=== PATIENT | female | born 1935 | race Caucasian/White ===

== ENCOUNTER 2019-04-05 15:57 | Inpatient (IN) | payer MEDICAID, MEDICARE ==
[~2019-04-05] VITALS: Ht 152.4 cm; Wt 39.0 kg
[2019-04-05 16:05] VITALS: BP_SYST 104
--- NOTE | 2019-04-05 16:05 | NUR ---
Placed in room 7. Placed on registered nurse cardiac telemetry, blood pressure machine and pulse oximeter. To gown for exam. Side rails up. Report given to Estefania RUSH.
--- NOTE | 2019-04-05 16:06 | NUR ---
Pt AAOx1 BIB BLS from [facility] c/o increased altered mental status. Dr. Rodarte, PMD, requests for evaluation and admitting. Pt uncooperative and agressive when staff attempting to care for pt. Addendum: 04/05/19 at 1828 by [email or web address] *Dr. Varela PMD requests evaluation and admittance.
--- NOTE | 2019-04-05 16:07 | NUR ---
ER Dr. Montelongo at bedside examining patient.
--- NOTE | 2019-04-05 16:09 | NUR ---
Pt refusing EKG at this time.
--- NOTE | 2019-04-05 16:25 | NUR ---
Pt grabbing staff and moving arms. Unable to initiate IV status. Dr. Montelongo notified. 1mg Ativan to be ordered.
[2019-04-05] MEDS ORDERED: LORazepam 2 MG/ML VIAL IVP ONE (16:30)
[2019-04-05 16:43] LABS: BASOPHILS % (AUTO) 0.8 % (0.0-2.0); EOSINOPHILS % (AUTO) 1.1 % (0.0-4.0); HEMATOCRIT 39.9 % (36-48); HEMOGLOBIN 13.3 g/dL (12.0-16.0); LYMPHOCYTES # (AUTO) 1.5 K/uL (1.0-5.5); LYMPHOCYTES % (AUTO) 35.9 % (20.5-51.5); MEAN CORPUSCULAR HEMOGLOBIN 30 pg (27-31); MEAN CORPUSCULAR HGB CONC 33 % (32-36); MEAN CORPUSCULAR VOLUME 90 fL (79.0-98.0); MONOCYTES # (AUTO) 0.4 K/uL (0.0-1.0); MONOCYTES % (AUTO) 10.3 % (1.7-9.3); NEUTROPHILS # (AUTO) 2.1 K/uL (1.8-7.7); NEUTROPHILS % (AUTO) 51.9 % (40.0-70.0); PLATELET COUNT (AUTO) 190 K/uL (130-430); RED BLOOD CELL COUNT(AUTO) 4.45 MIL/uL (4.2-6.2); WHITE BLOOD COUNT (AUTO) 4.1 K/uL (4.8-10.8)
[2019-04-05] MEDS ORDERED: NACL 0.9% 1,000 ML IV ONE (16:45)
[2019-04-05 16:56] LABS: ANION GAP 4 (5-15); CALCIUM 9.1 mg/dL (8.4-11.0); CHLORIDE 105 mmol/L (98-107); CREATININE 0.52 mg/dL (0.55-1.30); GLUCOSE 103 mg/dL (70-99); POTASSIUM 3.9 mmol/L (3.5-5.1); SODIUM SERUM 142 mmol/L (136-145); UREA NITROGEN, BLOOD 28 mg/dL (8-21)
[2019-04-05 16:57] LABS: PROTHROMBIN TIME 10.1 SECS (9.5-12.5)
[2019-04-05 17:02] LABS: ALANINE AMINOTRANSFERASE 42 U/L (12-78); ALBUMIN 2.9 g/dL (3.4-4.8); ASPARTATE AMINOTRANSFERASE 17 U/L (10-37); TOTAL BILIRUBIN 0.5 mg/dL (0.0-1.0)
[2019-04-05 17:04] LABS: ACETAMINOPHEN < 1 ug/mL (1-30)
[2019-04-05] MEDS ORDERED: DONE10TA44 GT (17:37)
[2019-04-05] MEDS ORDERED: [UNRECOGNIZED DRUG - CODE] GT (17:47)
[2019-04-05] MEDS ORDERED: OMEP20CA11 GT (17:47)
[2019-04-05] MEDS ORDERED: BISA10SU61 RC (17:47)
[2019-04-05] MEDS ORDERED: DEPL250/5 GT (17:47)
[2019-04-05] MEDS ORDERED: CHLO237L3 TP (17:47)
[2019-04-05] MEDS ORDERED: DOCU250C71 GT (17:47)
[2019-04-05] MEDS ORDERED: NA P133E41 RC (17:47)
[2019-04-05] MEDS ORDERED: CRAN1CAP8 GT (17:53)
[2019-04-05] MEDS ORDERED: CARB-61 GT (17:53)
[2019-04-05] MEDS ORDERED: ACET325C6 GT (17:53)
[2019-04-05] MEDS ORDERED: AMIN30LI2 GT (17:53)
[2019-04-05] MEDS ORDERED: PRO20 GT (17:53)
[2019-04-05] MEDS ORDERED: UTI-Stat Liquid GT (17:53)
--- NOTE | 2019-04-05 17:53 | NUR ---
Medication reconciliation completed with information provided by Patient's MAR from [facility]. Any prior medication reconciliation on file was reviewed and corrected.
--- NOTE | 2019-04-05 17:54 | NUR ---
Patient's code status is FULL CODE paperwork completed and placed in chart.
--- NOTE | 2019-04-05 19:10 | NUR ---
Pt resting in bed. VSS. Waiting to transfer patient to floor when RN is available. Will continue to monitor.
--- NOTE | 2019-04-05 20:30 | NUR ---
Pt transfered to tele unit. No belongings seen at bedside. VSS. Report given at bedside.
--- NOTE | 2019-04-05 20:30 | NUR ---
ADMISSION NOTE Received patient from ER via gurney under the care of Dr. Varela. Patient admitted with diagnosis of ALOC. Patient is awake, alert, oriented X 1. Patient oriented to hospital room, call light, toileting, pain management BUT no shows of understanding. Call light within reach. Will continue to monitor patient condition.
--- NOTE | 2019-04-05 20:33 | NUR ---
ADMISSION: The patient, JANETH YANCEY, 83 y/o, F admitted by ANTHONY HOPPER MD, was given written information regarding hospital policies, unit procedures and contact persons. Valuables were checked and pt was oriented to her room and surrounding .
[2019-04-05 20:55] VITALS: BP_SYST 133
--- NOTE | 2019-04-05 21:00 | NUR ---
Buttocks slightly excoriated. No drainage noted. Foul odor noted from perineal area. Ana care given and photo of buttocks taken. Z guard applied to buttocks. saline lock in RFA without any signs of infiltration. Addendum: 04/06/19 at 0123 by Marcie Chamberlain RN G tube is clamped and no redness or leakage noted at the G tube site.
--- NOTE | 2019-04-05 22:55 | NUR ---
New orders yet to be entered by Dr. Varela. Will page him for orders.
--- NOTE | 2019-04-05 22:57 | NUR ---
RAUL HOPPER Addendum: 04/05/19 at 2300 by Peace Luu CNA CALLED LEFT VOICE MAIL
--- NOTE | 2019-04-05 23:15 | NUR ---
2ND PAGE PAGED DOCTOR HOPPER.
--- NOTE | 2019-04-05 23:24 | NUR ---
New orders obtained from Dr. Varela.
[2019-04-05] MEDS ORDERED: INSULIN REGULAR, HUMAN 100 UNITS/ML, 10 ML VIAL (humuLIN R) SUBCUT PRN (23:30)
[2019-04-05] MEDS ORDERED: BISACODYL 10 MG/SUPPOSITORY RC PRN (23:45)
[2019-04-06] MEDS: NACL 0.9% 1,000 ML IV SCH ×2 (00:02→12:33)
[2019-04-06] MEDS ORDERED: ACETAMINOPHEN 325 MG TABLET PO PRN (00:15)
[2019-04-06] MEDS ORDERED: ACETAMINOPHEN 325 MG TABLET GT PRN (00:15)
--- NOTE | 2019-04-06 00:15 | NUR ---
Guerra Cath #16F inserted utilizing sterile technique and urine specimen was collected for UA and UC. Pt is confused and combative. Pt was hitting and scratching. Pt required three RNs during Guerra Cath insertion.
[2019-04-06 00:45] LABS: BILIRUBIN,URINE NEGATIVE (NEGATIVE); BLOOD, URINE 1+ (NEGATIVE); CLARITY/URINE CLEAR (CLEAR); COLOR,URINE YELLOW (YELLOW); GLUCOSE,URINE NEGATIVE (NEGATIVE); KETONES,URINE NEGATIVE (NEGATIVE); LEUKOCYTE ESTERASE ,URINE 2+ (NEGATIVE); NITRITE, URINE POSITIVE (NEGATIVE); PROTEIN URINE NEGATIVE (NEGATIVE); UROBILINOGEN,URINE 0.2 (0.2-1.0)
[2019-04-06 00:48] LABS: BACTERIA,URINE MANY /HPF (None Seen); WBC,URINE >100 /HPF (0-3)
[2019-04-06 01:34] VITALS: BP_SYST 107
--- NOTE | 2019-04-06 02:00 | NUR ---
Pt is sleeping without any distress noted. IVF is infusing well in RH. Fall and safety precautions are in place.
--- NOTE | 2019-04-06 02:36 | NUR ---
CONSULT; CONSULT CALLED FOR DR. HEBER Boyle I SPOKE WITH LIZETTE SANTILLAN REASON FOR CONSULT: ALOC REQUESTING CONSULT: DR. HOPPER HOUSING COORDINATOR PHONE NUMBER: [phone]
--- NOTE | 2019-04-06 02:39 | NUR ---
CONSULT: CONSULT CALLED FOR DR. UMU BLANCHARD I SPOKE WITH LIZETTE SANTILLAN REASON FOR CONSULT: ALOC REQUESTING CONSULT: DR. HOPPER ASTRONOMY PROFESSOR PHONE NUMBER: [phone]
--- NOTE | 2019-04-06 02:41 | NUR ---
CONSULT: CONSULT CALLED FOR DR. UMU WILKERSON I SPOKE WITH LIZETTE SANTILLAN REASON FOR CONSULT: UTI REQUESTING CONSULT: DR. HOPPER ELECTRICAL ASSISTANT PHONE NUMBER: [phone]
--- NOTE | 2019-04-06 04:00 | NUR ---
Pt continues to sleep without any distress noted. IVF is infusing well in [facility]. Fall and safety precautions are in place.
[2019-04-06 06:25] LABS: BASOPHILS % (AUTO) 0.4 % (0.0-2.0); EOSINOPHILS # (AUTO) 0.1 K/uL (0.0-0.4); EOSINOPHILS % (AUTO) 1.4 % (0.0-4.0); HEMATOCRIT 35.3 % (36-48); HEMOGLOBIN 11.8 g/dL (12.0-16.0); LYMPHOCYTES # (AUTO) 1.5 K/uL (1.0-5.5); LYMPHOCYTES % (AUTO) 29.6 % (20.5-51.5); MEAN CORPUSCULAR HEMOGLOBIN 30 pg (27-31); MEAN CORPUSCULAR HGB CONC 33 % (32-36); MEAN CORPUSCULAR VOLUME 91 fL (79.0-98.0); MONOCYTES # (AUTO) 0.5 K/uL (0.0-1.0); NEUTROPHILS % (AUTO) 58.6 % (40.0-70.0); PLATELET COUNT (AUTO) 159 K/uL (130-430); RED CELL DISTRIBUTION WIDTH 17.6 % (9.0-15.0); WHITE BLOOD COUNT (AUTO) 5.1 K/uL (4.8-10.8)
--- NOTE | 2019-04-06 07:04 | NUR ---
Pt is sleeping and not in any distress at this time. Pt is resting quietly in bed. IVF is infusing well in RH. Fall and safety precautions are in place. All pt's needs were attended to. Will endorse to day shift nurse.
--- NOTE | 2019-04-06 07:15 | NUR ---
received report at the bedside from parvin Curry RN. patient alert awake x 1. confused. lungs bilaterally diminished at the bases.breathing even and unlabored. abdomen soft and non distended. bed low position. alarmed and locked. has iv access on the rt forearm #22. normal saline at 75cc/hr infusing on well.
[2019-04-06 07:16] VITALS: BP_SYST 111
[2019-04-06 07:34] LABS: ANION GAP 4 (5-15); CALCIUM 8.5 mg/dL (8.4-11.0); CHLORIDE 111 mmol/L (98-107); CREATININE 0.36 mg/dL (0.55-1.30); GLUCOSE 73 mg/dL (70-99); POTASSIUM 3.7 mmol/L (3.5-5.1); SODIUM SERUM 143 mmol/L (136-145); UREA NITROGEN, BLOOD 22 mg/dL (8-21)
[2019-04-06 07:39] LABS: ALANINE AMINOTRANSFERASE 33 U/L (12-78); ALBUMIN 2.4 g/dL (3.4-4.8); ASPARTATE AMINOTRANSFERASE 16 U/L (10-37); TOTAL BILIRUBIN 0.6 mg/dL (0.0-1.0)
[2019-04-06] MEDS ORDERED: [UNRECOGNIZED DRUG - OTHER] GT SCH (09:00)
[2019-04-06] MEDS ORDERED: CHLORHEXIDINE GLUCONATE TP SCH (09:00)
[2019-04-06] MEDS ORDERED: NON-FORMULARY MEDICATION (Amino Acids/Protein Hydrolys (Pro-Stat Liquid) 30 ML) GT SCH (09:00)
--- NOTE | 2019-04-06 09:30 | NUR ---
due medication given via g tube.
--- NOTE | 2019-04-06 09:33 | NUR ---
PAGED FOR ORDERS. SPOKE TO EXCHANGE FROM OFFICE.
[2019-04-06] MEDS: DOCUSATE SODIUM 100 MG/10 ML UDC GT SCH (09:44)
[2019-04-06] MEDS: MULTIVIT-MINERALS/FERROUS GLUC 15 ML UDC GT SCH (09:44)
[2019-04-06] MEDS: FLUoxetine HCL 20 MG CAPSULE (PROzac) GT SCH (09:44)
[2019-04-06] MEDS: CARBIDOPA/LEVODOPA 25/100 MG TABLET GT SCH ×3 (09:44→22:18)
--- NOTE | 2019-04-06 09:51 | NUR ---
Nutrition Update Carmine Scale 14 noted. Pt admitted for ALOC. Diet: Glucerna 1.2 1 CAN QID, Free Water Flush: 100MLQ 6HRS via GT BMI: 16.9 kg/m2 RD to follow per nutrition care standards.
--- NOTE | 2019-04-06 10:21 | NUR ---
PAGED FOR ORDERS.
--- NOTE | 2019-04-06 11:16 | NUR ---
seven secretary book keeper called dr adams x 2. no return call yet.
[2019-04-06 11:23] VITALS: BP_SYST 130
--- NOTE | 2019-04-06 12:25 | NUR ---
Wound Evaluation: Wound Consult ordered for Low Carmine Score. Patient evaluated for a low Carmine score of 14. Patient was awake, alert, non-verbal, non-responsive to verbal commands, and received in a [place] Bed with an IsoFlex KIRAN mattress. Patient needs to be turned in bed. Skin is intact. Recommend reposition patient side to side only every 2 hours with pillow support (keep one pillow underneath each side of pelvis, folding the pillow in half underneath the pelvic area to be offloaded). Elevate, off-load and float bilateral heels with one pillow lengthwise under each extremity at all times. Offload pressure areas with pillows for pressure re-distribution. Perform skin care and monitor skin integrity Q shift. Use moisture barrier cream on moisture susceptible areas QID and PRN for soiling. Connect a pump to the mattress and initiate low air loss therapy. Skin assessment: 1. Buttocks: Blanchable red erythema from IAD, present on admission. Recommend: Cleanse involved areas with mild soap and water. Pat dry. Apply moisture barrier cream to involved areas. Perform site care as needed for soiling. 2. Bilateral lateral hips: Blanchable redness, present on admission. Reposition patient side to side only every 2 hours with pillow support (keep one pillow underneath each side of pelvis, folding the pillow in half underneath the pelvic area to be offloaded). 3. Bilateral heels: Blanchable redness, present on admission. Elevate, off-load and float bilateral heels with one pillow lengthwise under each extremity at all times.
[2019-04-06] MEDS ORDERED: LORazepam 2 MG/ML VIAL IVP ONE (13:45)
[2019-04-06 16:01] VITALS: BP_SYST 159
--- NOTE | 2019-04-06 17:37 | NUR ---
latest bs 65mg/dl. no coverage given. md called for hypoglycemic protocol. awaiting to call back.
[2019-04-06] MEDS ORDERED: DEXTROSE 50% JECT 50 ML DISP.SYRIN ONE (17:49)
[2019-04-06] MEDS: VALPROIC ACID ORAL SYRUP 250 MG/5 ML UDC GT SCH (18:18)
--- NOTE | 2019-04-06 18:40 | NUR ---
latest bs 267 mg/dl. no coverage given.
--- NOTE | 2019-04-06 19:00 | NUR ---
needs a low air mattress machine. please follow up thanks.
--- NOTE | 2019-04-06 19:20 | NUR ---
endorsed to incoming nurse Marcie RUSH
--- NOTE | 2019-04-06 19:25 | NUR ---
Report was received from day shift nurse. Pt is awake and very confused. Pt is oriented to her name only. Pt scratches and hits RN when touched. Skin is warm and dry to touch. No signs or symptoms of hypoglycemia or hyperglycemia noted. GT Feeding of Glucerna 1.2 is infusing well at 40ml/hr with 0ml residual. HOB is elevated 45 degrees to prevent aspiration. IVF of NS is infusing well at 75ml/hr in LW without any signs of infiltration. Fall and safety precautions are in place. Bed alarm is on and bed is in the lowest and locked positions.
[2019-04-06 20:00] VITALS: BP_SYST 92
--- NOTE | 2019-04-06 21:30 | NUR ---
Pt remains confused and disoriented. Pt is combative during pt care. Pt grabs onto our isolation gowns and rips them. Pt scratches and then calms down when left alone. GTF and IVF are infusing well. Fall and safety precautions are in place.
[2019-04-06] MEDS: DONEPEZIL HCL 5 MG TABLET (ARICEPT) GT SCH (22:18)
--- NOTE | 2019-04-06 23:30 | NUR ---
Pt is resting quietly in bed. IVF and GTF are infusing well. Fall and safety precautions are in place.
[2019-04-07 00:16] VITALS: BP_SYST 99
--- NOTE | 2019-04-07 00:30 | NUR ---
Pt was seen by Dr. Norman Marmolejo.
--- NOTE | 2019-04-07 02:00 | NUR ---
Pt is awake and no respiratory distress noted. IVF is infusing well in LW. Pt is tolerating GT Feeding well. HOB is elevated 45 degrees. Fall and safety precautions are in place.
[2019-04-07] MEDS: NACL 0.9% 1,000 ML IV SCH ×3 (02:10→23:20)
[2019-04-07] MEDS ORDERED: LEVOFLOXACIN 250 MG/D5W 50 ML IV ONE (03:10)
[2019-04-07] MEDS: LEVOFLOXACIN 250 MG/D5W 50 ML IV SCH (03:24)
--- NOTE | 2019-04-07 03:30 | NUR ---
Pt noted to be pulling very hard on her IV tubing and pump. With the assistance of two RN's, pt was able to let go of the tubing and the pump. Both the IV tubing and pump were changed due to damages. RN and charge nurse were unable to open the IV pump to remove the tubing. Pt was kept comfortable in bed. Fall and safety precautions are in place.
--- NOTE | 2019-04-07 05:30 | NUR ---
Pt is resting quietly in bed, but agitated while being given lyndsey care. IVF and GT feeding are infusing well.
[2019-04-07] MEDS: LORazepam 2 MG/ML VIAL IVP PRN ×2 (06:17→06:37)
[2019-04-07] MEDS: LANSOPRAZOLE 30 MG CAPSULE.DR GT SCH (06:21)
--- NOTE | 2019-04-07 06:37 | NUR ---
Pt was very agitated and combative. Pt reached for her IV pump and ripped the IV tubing into three pieces. Pt also reached for her feeding tubing and ripped it into two pieces. Pt pulled her G Tube Feeding from the pole, yanked the tubing out of it and threw the feeding on the floor. In addition, pt yanked IV bag from the IV pole and threw the bag on her bed. Three staff attempted to free the tubings, IV bag and feeding from pt, but pt kept on kicking and scratching staff. Pt was also spitting at staff. IV Angiocath noted to be dislodged while attempting to give IV Ativan. The Angiocath was removed intact. Pt also wasted initial Ativan 1mg by snatching the medication filled syringe from RN, while pt was being held by LEAFLET DISTRIBUTOR and RN. Pt squirted the Ativan on her bed. New IV line was started in RAC with Angiocath 22G and Ativan 1mg was given IVP. Pt required four staff members to restrain her while new IV line was being started and while IV Ativan was being given.
--- NOTE | 2019-04-07 07:15 | NUR ---
sbar report received at this time at the bedside. patient alert awake confused, but sleepy. has iv access on the rt ac #22. saline lock. no glucerna hanging at the bedside. still with g tube in placed with abdominal binder on. bed in low position, alarmed and locked. call lights within reach.
[2019-04-07 07:48] LABS: BASOPHILS % (AUTO) 0.5 % (0.0-2.0); EOSINOPHILS # (AUTO) 0.1 K/uL (0.0-0.4); EOSINOPHILS % (AUTO) 2.4 % (0.0-4.0); HEMATOCRIT 35.6 % (36-48); HEMOGLOBIN 11.9 g/dL (12.0-16.0); LYMPHOCYTES # (AUTO) 1.7 K/uL (1.0-5.5); LYMPHOCYTES % (AUTO) 36.1 % (20.5-51.5); MEAN CORPUSCULAR HEMOGLOBIN 30 pg (27-31); MEAN CORPUSCULAR HGB CONC 34 % (32-36); MEAN CORPUSCULAR VOLUME 90 fL (79.0-98.0); MONOCYTES # (AUTO) 0.7 K/uL (0.0-1.0); MONOCYTES % (AUTO) 14.7 % (1.7-9.3); NEUTROPHILS # (AUTO) 2.1 K/uL (1.8-7.7); NEUTROPHILS % (AUTO) 46.3 % (40.0-70.0); PLATELET COUNT (AUTO) 166 K/uL (130-430); RED BLOOD CELL COUNT(AUTO) 3.94 MIL/uL (4.2-6.2); RED CELL DISTRIBUTION WIDTH 17.1 % (9.0-15.0); WHITE BLOOD COUNT (AUTO) 4.6 K/uL (4.8-10.8)
[2019-04-07 08:12] LABS: ALANINE AMINOTRANSFERASE 25 U/L (12-78); ALBUMIN 2.6 g/dL (3.4-4.8); ANION GAP 7 (5-15); ASPARTATE AMINOTRANSFERASE 25 U/L (10-37); CALCIUM 8.6 mg/dL (8.4-11.0); CHLORIDE 107 mmol/L (98-107); CREATININE 0.37 mg/dL (0.55-1.30); GLUCOSE 69 mg/dL (70-99); POTASSIUM 3.5 mmol/L (3.5-5.1); SODIUM SERUM 140 mmol/L (136-145); TOTAL BILIRUBIN 0.4 mg/dL (0.0-1.0); UREA NITROGEN, BLOOD 16 mg/dL (8-21)
[2019-04-07 08:38] VITALS: BP_SYST 145
--- NOTE | 2019-04-07 09:00 | NUR ---
us carotid and renal ultrasound done.
--- NOTE | 2019-04-07 09:10 | NUR ---
quite and resting at this time.
--- NOTE | 2019-04-07 09:30 | NUR ---
started to hanged iv tubing with new iv bag normal saline at 75cc/hr. and new feeding bag to start at 40cc/hr. incontinent of urine and bowel.
--- NOTE | 2019-04-07 11:00 | NUR ---
resting and quite
[2019-04-07] MEDS: FLUoxetine HCL 20 MG CAPSULE (PROzac) GT SCH (11:02)
[2019-04-07] MEDS: DOCUSATE SODIUM 100 MG/10 ML UDC GT SCH (11:02)
[2019-04-07] MEDS: MULTIVIT-MINERALS/FERROUS GLUC 15 ML UDC GT SCH (11:02)
[2019-04-07] MEDS: CARBIDOPA/LEVODOPA 25/100 MG TABLET GT SCH ×3 (11:02→20:38)
[2019-04-07 12:00] VITALS: BP_SYST 122
--- NOTE | 2019-04-07 12:04 | NUR ---
had eeg done at the bedside.
--- NOTE | 2019-04-07 15:33 | NUR ---
quite at this time and resting.
--- NOTE | 2019-04-07 15:46 | NUR ---
Dietitian Recommendations * Recommend Glucerna 1.2 at 40 ml/hr, Free Water Flush: 100 ml Q6h via GT Provides: 1152 kcal/day, 58 gm protein/day, and 77 gm protein/day Meets: 102% of lower end of estimated caloric needs and 107% of lower end of estimated protein needs LP, RD Please refer to Nutrition Assessment for details. Addendum: 04/07/19 at [address] Amended: Links added.
[2019-04-07] MEDS: VALPROIC ACID ORAL SYRUP 250 MG/5 ML UDC GT SCH (16:17)
--- NOTE | 2019-04-07 16:22 | NUR ---
patient quite and resting and following command. due medication given at this time.
[2019-04-07 17:08] VITALS: BP_SYST 100
--- NOTE | 2019-04-07 18:00 | NUR ---
iv access still intact. and g tube feeding. still infusing in.
--- NOTE | 2019-04-07 19:25 | NUR ---
sbar report endorsed to incoming nurse Ingrid RUSH
[2019-04-07 20:00] VITALS: BP_SYST 133
--- NOTE | 2019-04-07 20:00 | NUR ---
PM SHIFT ASSESSMENT Received patient lying in bed, aox1, yakut speaking, vital signs stable, on room air, no facial grimacing noted for pain, had a bowel movement, bed bath and incontinence care provided, linens and gown changed, repositioned with pillow support, fall and safety measures in place, will monitor.
[2019-04-07] MEDS: DONEPEZIL HCL 5 MG TABLET (ARICEPT) GT SCH (20:38)
--- NOTE | 2019-04-07 21:44 | NUR ---
IV/ RN ROUNDS Patient awake, calm, IV line to right arm infiltrated, new iv placed to left upper arm with 22 gauge catheter, good blood return noted, secured with opsite and tape, resumed IVF, new GTube feeding bag hanged, resumed GT feeding at 40 ml/hr. No residual noted, patient's due medications administered via gtube. Aspiration precautions maintained, patient repositioned and turned with pillow support. Isolation and safety measures in place.
--- NOTE | 2019-04-07 22:03 | NUR ---
RN ROUNDS Patient resting quietly in bed, breathing even and unlabored, remains on room air, IVF and GTube feeding ongoing, safety precautions in place, will closely monitor.
--- NOTE | 2019-04-07 23:41 | NUR ---
BLOOD SUGAR Patient continues to rest quietly, breathing is even and unlabored, vital signs stable, blood sugar check this pm of 119, no insulin coverage needed.
[2019-04-08] MEDS: LEVOFLOXACIN 250 MG/D5W 50 ML IV SCH
[2019-04-08 00:18] VITALS: BP_SYST 94
--- NOTE | 2019-04-08 02:04 | NUR ---
RN ROUNDS Patient continues to rest quietly, breathing is even and unlabored, repositioned with pillow support, IVF and GTube feeding continues to infuse. Safety measures in place.
--- NOTE | 2019-04-08 04:09 | NUR ---
RN ROUNDS Patient asleep, breathing is even and unlabored, remains on room air, repositioned with pillow support, IVF and GT feeding continues to infuse. Safety measures in place. Will monitor.
[2019-04-08] MEDS: LANSOPRAZOLE 30 MG CAPSULE.DR GT SCH (05:58)
--- NOTE | 2019-04-08 06:11 | NUR ---
RN ROUNDS Patient resting quietly, breathing is even and unlabored, remains on room air, no facial grimacing noted for pain, due medications administered via gt, no residual noted, flushed with 100 ml of H20. Aspiration precautions maintained, blood sugar check this am of 80, repositioned with pillow support, isolation and safety measures maintained through out the shift, will monitor until report given to am nurse.
[2019-04-08 08:24] VITALS: BP_SYST 152
--- NOTE | 2019-04-08 08:39 | NUR ---
patient quite and resting. kept watch.
[2019-04-08] MEDS: MULTIVIT-MINERALS/FERROUS GLUC 15 ML UDC GT SCH (10:34)
[2019-04-08] MEDS: FLUoxetine HCL 20 MG CAPSULE (PROzac) GT SCH (10:34)
[2019-04-08] MEDS: CARBIDOPA/LEVODOPA 25/100 MG TABLET GT SCH ×3 (10:34→20:38)
[2019-04-08] MEDS: DOCUSATE SODIUM 100 MG/10 ML UDC GT SCH (10:34)
[2019-04-08 11:16] VITALS: BP_SYST 145
--- NOTE | 2019-04-08 13:40 | NUR ---
CONSULTATION PAGED REASON FOR CONSULTATION:SHELLEY WAS CONSULT CALLED?Y PERSON WHO WAS NOTIFIED:IVY CONSULTING PHYSICIAN:JULIANO MEYER SOLUTION MANAGER SPECIALTY:CARDIO SOLUTION MANAGER PHONE NUMBER:[phone] ORDERING PHYSICIAN:ANTHONY AGGARWAL
[2019-04-08 16:38] VITALS: BP_SYST 106
[2019-04-08] MEDS: NACL 0.9% 1,000 ML IV SCH (18:02)
[2019-04-08] MEDS: VALPROIC ACID ORAL SYRUP 250 MG/5 ML UDC GT SCH (18:02)
--- NOTE | 2019-04-08 19:35 | NUR ---
ROUNDS PATIENT RESTING COMFORTABLY IN BED, NOT IN DISTRESS, VITALS STABLE, NO SIGNS OF ANY PAIN AND DISCOMFORT NOTED. ASSESSMENT DONE AND DOCUMENTED. SEE FLOWSHEET. NEEDS ATTENDED TO. SAFETY AND FALL MEASURES IN PLACED. BED IN LOW AND LOCKED POSITION. CALL LIGHT PLACED WITHIN REACH.
[2019-04-08] MEDS: DONEPEZIL HCL 5 MG TABLET (ARICEPT) GT SCH (20:39)
--- NOTE | 2019-04-08 21:13 | NUR ---
MEDICATIONS DUE MEDICATIONS GIVEN SCHEDULED, TOLERATED WELL. WILL CONTINUE TO MONITOR.
[2019-04-08 23:12] VITALS: BP_SYST 132
--- NOTE | 2019-04-09 00:12 | NUR ---
PATIENT RESTING: Patient resting quietly. No acute distress noted. Vital signs within normal range.
[2019-04-09] MEDS: LEVOFLOXACIN 250 MG/D5W 50 ML IV SCH (00:23)
--- NOTE | 2019-04-09 02:15 | NUR ---
ROUNDS PATIENT ASLEEP, NO SOB NOR PAIN AND DISCOMFORT NOTED. WILL CONTINUE TO MONITOR.
--- NOTE | 2019-04-09 04:12 | NUR ---
PATIENT RESTING: Patient resting quietly. No acute distress noted. Vital signs within normal range.
[2019-04-09] MEDS: NACL 0.9% 1,000 ML IV SCH ×2 (05:21→19:30)
[2019-04-09] MEDS: LANSOPRAZOLE 30 MG CAPSULE.DR GT SCH (06:04)
--- NOTE | 2019-04-09 06:55 | NUR ---
CLOSING NOTES PATIENT RESTING COMFORTABLY IN BED, VITALS STABLE, NO SIGNS OF ANY PAIN AND DISCOMFORT NOTED. ALL NEEDS ATTENDED TO. SAFETY MEASURES MAINTAINED. WILL ENDORSE TO INCOMING SHIFT NURSE.
[2019-04-09 07:50] VITALS: BP_SYST 149
--- NOTE | 2019-04-09 08:00 | NUR ---
ASSUMPTION OF CARE: RECEIVED PT AWAKE, CONFUSED, DX: RISK FOR INJURY, R/T ALOC, VSS, AFEBRILE, NO S/S OF DISTRESS, NO INDICATION OF PAIN. BREATH SOUNDS ARE CLEAR, BREATHING UNLABORED, O2 SAT=96% ORA, COLOR IS GOOD, LOWER EXTREMITIES COOL, DRY TO TOUCH, BILATERAL LOWER EXTREMITY PULSES ARE WEAK TO PALPATION, ROOM CLOSE TO NURSES STATION, FREQUENT MONITORING, SIDE RAILS UP X 2, CALL LIGHT PLACED WITHIN REACH, WILL CON'T TO MONITOR AND ASSESS.
[2019-04-09 08:53] LABS: BASOPHILS % (AUTO) 0.7 % (0.0-2.0); EOSINOPHILS # (AUTO) 0.1 K/uL (0.0-0.4); EOSINOPHILS % (AUTO) 2.9 % (0.0-4.0); HEMATOCRIT 34.3 % (36-48); HEMOGLOBIN 11.4 g/dL (12.0-16.0); LYMPHOCYTES # (AUTO) 1.3 K/uL (1.0-5.5); LYMPHOCYTES % (AUTO) 33.4 % (20.5-51.5); MEAN CORPUSCULAR HEMOGLOBIN 30 pg (27-31); MEAN CORPUSCULAR HGB CONC 33 % (32-36); MEAN CORPUSCULAR VOLUME 91 fL (79.0-98.0); MONOCYTES # (AUTO) 0.5 K/uL (0.0-1.0); MONOCYTES % (AUTO) 13.4 % (1.7-9.3); NEUTROPHILS % (AUTO) 49.6 % (40.0-70.0); PLATELET COUNT (AUTO) 166 K/uL (130-430); RED BLOOD CELL COUNT(AUTO) 3.79 MIL/uL (4.2-6.2); RED CELL DISTRIBUTION WIDTH 17.2 % (9.0-15.0)
--- NOTE | 2019-04-09 09:00 | NUR ---
WORKERS COMPENSATION CONSULTANT: MORNING MEDS GIVEN, PER ORDERED BY Brandon, TOLERATED WELL, WILL CON'T TO MONITOR AND ASSESS.
[2019-04-09 09:03] LABS: ANION GAP 6 (5-15); CALCIUM 8.6 mg/dL (8.4-11.0); CHLORIDE 105 mmol/L (98-107); CREATININE 0.24 mg/dL (0.55-1.30); GLUCOSE 90 mg/dL (70-99); SODIUM SERUM 141 mmol/L (136-145); UREA NITROGEN, BLOOD 7 mg/dL (8-21)
[2019-04-09] MEDS: DOCUSATE SODIUM 100 MG/10 ML UDC GT SCH (09:32)
[2019-04-09] MEDS: CARBIDOPA/LEVODOPA 25/100 MG TABLET GT SCH ×3 (09:32→20:42)
[2019-04-09] MEDS: FLUoxetine HCL 20 MG CAPSULE (PROzac) GT SCH (09:32)
[2019-04-09] MEDS: MULTIVIT-MINERALS/FERROUS GLUC 15 ML UDC GT SCH (10:36)
[2019-04-09 11:01] VITALS: BP_SYST 133
--- NOTE | 2019-04-09 12:00 | NUR ---
GLUCOSE MONITORING: BLOOD SUGAR JECMY=142, NO COVERAGE REQUIRED, TOLERATING G-TUBE FEEDING, 150 WATER FLUSHES GIVEN PER ORDERED BY Brandon, WILL CON'T TO MONITOR AND ASSESS.
--- NOTE | 2019-04-09 15:00 | NUR ---
NURSES NOTES: PT ASLEEP, AROUSED VIA TACTILE STIMULI, WAS CLEANED, REPOSITIONED FOR COMFORT, SKIN CARE GIVEN AT THIS TIME, TOLERATED WELL, WILL CON'T TO MONITOR, CON'T WITH PLAN OF CARE.
[2019-04-09 15:43] VITALS: BP_SYST 120
--- NOTE | 2019-04-09 16:25 | NUR ---
Nutrition Follow Up RD reviewed pt's current EMR including diet hx, physician notes, nursing notes, pertinent labs/meds/procedures, care trends and care activity. Current enteral regimen: Glucerna 1.2 @ 40ml/hr with 100ml FWF Q6 Subjective Information: Patient asleep. RD observed TF running in place as ordered at beside. 18ml infused at time of RD visit. Anthropometrics verified. Per nursing, patient is tolerating tube feeding, no n/v/d or residuals at this time. Estimated Energy Expenditure (kcals/day) 8549-0533 kcal/day (25-30 kcal/kg IBW for gradual wt gain promotion) Estimated Protein Required (g/day) 54-68 gm/day (1.2-1.5 gm/kg IBW for gradual wt gain promotion) Estimated Fluid Required (l/day) 1 L/day (25 ml/kcal for geriatric mainteance) Problem/Etiology/Signs/Symptoms Underweight related to physiological causes as evidenced by BMI: 16.9 kg/m2, 87% of IBW, and thin appearance. *ongoing Expected Outcomes/Goals - Monitor tolerance to EN support w/ goal of pt meeting at least 85% of estimated nturitional needs, labs trending WNL, normal GI function, and skin integrity/wt maintenance Dietitian Recommendations * Continue Glucerna 1.2 at 40 ml/hr, Free Water Flush: 100 ml Q6h via GT Provides: 1152 kcal/day, 58 gm protein/day, and 773ml of water/day. Meets: 102% of lower end of estimated caloric needs and 107% of lower end of estimated protein needs Follow Up High Risk: F/U in 2-3days LT, RD
--- NOTE | 2019-04-09 16:32 | NUR ---
Dietitian Recommendations * Continue Glucerna 1.2 at 40 ml/hr, Free Water Flush: 100 ml Q6h via GT Provides: 1152 kcal/day, 58 gm protein/day, and 773ml of water/day. Meets: 102% of lower end of estimated caloric needs and 107% of lower end of estimated protein needs Please see Nutrition Follow Up for further details. LT, RD
[2019-04-09] MEDS: LORazepam 2 MG/ML VIAL IVP PRN (17:39)
[2019-04-09] MEDS: VALPROIC ACID ORAL SYRUP 250 MG/5 ML UDC GT SCH (17:40)
--- NOTE | 2019-04-09 18:00 | NUR ---
END OF SHIFT: PT RESTING IN POSITION OF COMFORT, WITH NO S/S OF DISTRESS, CALL LIGHT WITHIN REACH, ROOM CLOSE TO NURSES STATION, WILL CON'T WITH POC, ENDORSE TO FRUIT CUTTER NURSE.
--- NOTE | 2019-04-09 19:40 | NUR ---
ROUNDS PATIENT RESTING COMFORTABLY IN BED, NOT IN DISTRESS, VITALS STABLE. ASSESSMENT DONE AND DOCUMENTED. SEE FLOWSHEET. NEEDS ATTENDED TO. SAFETY AND FALL PRECAUTION MEASURES IN PLACED. BED IN LOW AND LOCKED POSITION. CALL LIGHT PLACED WITHIN REACH.
[2019-04-09] MEDS: DONEPEZIL HCL 5 MG TABLET (ARICEPT) GT SCH (20:42)
--- NOTE | 2019-04-09 21:14 | NUR ---
MEDICATIONS DUE MEDICATIONS GIVEN SCHEDULED PER G TUBE, TOLERATED WELL. WILL CONTINUE TO MONITOR.
--- NOTE | 2019-04-10 00:13 | NUR ---
PATIENT RESTING: Patient resting quietly. No acute distress noted. Vital signs within normal range.
[2019-04-10 00:36] VITALS: BP_SYST 125
[2019-04-10] MEDS: LEVOFLOXACIN 250 MG/D5W 50 ML IV SCH (01:04)
[2019-04-10] MEDS: DEXTROSE 50% JECT 50 ML DISP.SYRIN IVP PRN ×2 (01:04→11:46)
--- NOTE | 2019-04-10 02:13 | NUR ---
ROUNDS PATIENT ASLEEP, NO SOB NOTED, VITALS STABLE. WILL CONTINUE TO MONITOR.
--- NOTE | 2019-04-10 04:12 | NUR ---
PATIENT RESTING: Patient resting quietly. No acute distress noted. Vital signs within normal range.
[2019-04-10] MEDS: D5NS 1,000 ML IV SCH (05:36)
[2019-04-10] MEDS: LANSOPRAZOLE 30 MG CAPSULE.DR GT SCH (06:42)
--- NOTE | 2019-04-10 06:50 | NUR ---
CLOSING NOTES PATIENT AWAKE, VITALS STABLE, NO PAIN AND DISCOMFORT NOTED. ALL NEEDS ATTENDED TO. WILL ENDORSE TO INCOMING NURSE.
[2019-04-10 08:00] VITALS: BP_SYST 140
--- NOTE | 2019-04-10 08:00 | NUR ---
ASSUMPTION OF CARE: RECEIVED PT AWAKE, CONFUSED, DX: RISK FOR INJURY, R/T ALOC, VSS, AFEBRILE, NO S/S OF DISTRESS, NO INDICATION OF PAIN. BREATH SOUNDS ARE CLEAR, BREATHING UNLABORED, O2 SWI=611% ORA, COLOR IS GOOD, SKIN WARM, DRY TO TOUCH, BILATERAL LOWER EXTREMITY PULSES ARE WEAK TO PALPATION, ROOM CLOSE TO NURSES STATION, FREQUENT MONITORING, SIDE RAILS UP X 2, CALL LIGHT PLACED WITHIN REACH, WILL CON'T TO MONITOR AND ASSESS.
--- NOTE | 2019-04-10 09:30 | NUR ---
CURATOR MEDICAL MUSEUM: MORNING MEDS GIVEN, PER ORDERED BY Brandon, TOLERATED WELL, WILL CON'T TO MONITOR AND ASSESS.
[2019-04-10 09:43] LABS: BASOPHILS % (AUTO) 0.5 % (0.0-2.0); EOSINOPHILS # (AUTO) 0.1 K/uL (0.0-0.4); EOSINOPHILS % (AUTO) 3.3 % (0.0-4.0); HEMATOCRIT 36.8 % (36-48); HEMOGLOBIN 12.4 g/dL (12.0-16.0); LYMPHOCYTES # (AUTO) 1.2 K/uL (1.0-5.5); MEAN CORPUSCULAR HEMOGLOBIN 30 pg (27-31); MEAN CORPUSCULAR HGB CONC 34 % (32-36); MEAN CORPUSCULAR VOLUME 90 fL (79.0-98.0); MONOCYTES # (AUTO) 0.6 K/uL (0.0-1.0); MONOCYTES % (AUTO) 16.4 % (1.7-9.3); NEUTROPHILS % (AUTO) 49.8 % (40.0-70.0); PLATELET COUNT (AUTO) 184 K/uL (130-430); RED CELL DISTRIBUTION WIDTH 17.6 % (9.0-15.0); WHITE BLOOD COUNT (AUTO) 3.9 K/uL (4.8-10.8)
[2019-04-10 09:54] LABS: ALANINE AMINOTRANSFERASE 18 U/L (12-78); ALBUMIN 2.4 g/dL (3.4-4.8); ASPARTATE AMINOTRANSFERASE 10 U/L (10-37); CALCIUM 8.8 mg/dL (8.4-11.0); CHLORIDE 106 mmol/L (98-107); CREATININE 0.37 mg/dL (0.55-1.30); GLUCOSE 79 mg/dL (70-99); POTASSIUM 4.1 mmol/L (3.5-5.1); SODIUM SERUM 140 mmol/L (136-145); TOTAL BILIRUBIN 0.4 mg/dL (0.0-1.0); UREA NITROGEN, BLOOD 6 mg/dL (8-21)
[2019-04-10 09:55] LABS: ANION GAP < 3 (5-15)
[2019-04-10 11:08] VITALS: BP_SYST 132
[2019-04-10] MEDS: DOCUSATE SODIUM 100 MG/10 ML UDC GT SCH (11:44)
[2019-04-10] MEDS: CARBIDOPA/LEVODOPA 25/100 MG TABLET GT SCH ×3 (11:45→20:41)
[2019-04-10] MEDS: FLUoxetine HCL 20 MG CAPSULE (PROzac) GT SCH (11:45)
[2019-04-10] MEDS: MULTIVIT-MINERALS/FERROUS GLUC 15 ML UDC GT SCH (11:46)
--- NOTE | 2019-04-10 12:00 | NUR ---
GLUCOSE MONITORING: BLOOD SUGAR LEVEL=67, NO COVERAGE REQUIRED, D50 1 AMP GIVEN IVP, TOLERATED WELL, WILL CON'T TO MONITOR AND ASSESS.
--- NOTE | 2019-04-10 13:30 | NUR ---
GLUCOSE MONITORING: BLOOD SUGAR LEVEL [id number]=308, TOLERATING FEEDING, WILL CON'T TO MONITOR AND ASSESS.
[2019-04-10 15:34] VITALS: BP_SYST 151
--- NOTE | 2019-04-10 18:00 | NUR ---
GLUCOSE MONITORING: BLOOD SUGAR LEVEL=83, NO COVERAGE REQUIRED, TOLERATING FEEDING, WILL CON'T TO MONITOR AND ASSESS.
--- NOTE | 2019-04-10 18:00 | NUR ---
END OF SHIFT: PT RESTING IN POSITION OF COMFORT, WITH NO S/S OF DISTRESS, CALL LIGHT WITHIN REACH, ROOM CLOSE TO NURSES STATION, WILL CON'T WITH POC, ENDORSE TO RESIDENTIAL DIRECTOR NURSE.
[2019-04-10] MEDS: VALPROIC ACID ORAL SYRUP 250 MG/5 ML UDC GT SCH (18:03)
--- NOTE | 2019-04-10 19:36 | NUR ---
Skin is warm and dry to touch. Skin is warm and dry to touch. No signs or symptoms of hypoglycemia or hyperglycemia noted. GT Feeding of Glucerna 1.2 is infusing well at 40ml/hr with HOB elevated at 30 degrees to prevent aspiration. IVF of D5NS is infusing well at 50ml/hr in LAC without any signs of infiltration. Fall and safety precautions are in place. Bed alarm is on and bed is in the lowest and locked positions. Addendum: 04/10/19 at 1940 by Marcie Chamberlain RN Pt is confused and oriented to her name only.
[2019-04-10 20:00] VITALS: BP_SYST 105
[2019-04-10] MEDS: DONEPEZIL HCL 5 MG TABLET (ARICEPT) GT SCH (20:41)
[2019-04-10] MEDS: LORazepam 2 MG/ML VIAL IVP PRN (20:46)
--- NOTE | 2019-04-10 20:56 | NUR ---
Pt agitated and being combative upon medication pass. PRN Medication, Ativan, given as ordered. Pt tolerated well. No s/s of Resp distress noted. Pt remains confused. Will continue to monitor.
--- NOTE | 2019-04-10 22:00 | NUR ---
Pt is asleep and not in any distress. GTF and IVF are infusing well.
[2019-04-11] VITALS: BP_SYST 112
--- NOTE | 2019-04-11 00:21 | NUR ---
Pt is awake and uncooperative with blood sugar testing. Pt required two RNs to hold her hands and legs. Pt is kicking and spitting at staff. Accucheck 66 due to pt not allowing RN to obtain enough blood for the strip. Accucheck done a second time with error due to not enough blood on the strip. Pt is combative and kicking. Accucheck repeated a third time and was 72. GTF and IVF are infusing well.
[2019-04-11] MEDS: D5NS 1,000 ML IV SCH (00:23)
[2019-04-11] MEDS: LEVOFLOXACIN 250 MG/D5W 50 ML IV SCH (00:56)
[2019-04-11] MEDS: LORazepam 2 MG/ML VIAL IVP PRN (00:56)
--- NOTE | 2019-04-11 00:56 | NUR ---
Pt remains combative and agitated during pt care, pulling on staff's clothing and ID badges. Pt also spitting at staff. Ativan 1mg given IV for agitation. IVF and GT Feeding are infusing well. Fall and safety precautions are in place.
--- NOTE | 2019-04-11 02:30 | NUR ---
Pt is sleeping without any distress noted. GTF and IVF are infusing well. Fall and safety precautions are in place.
--- NOTE | 2019-04-11 03:29 | NUR ---
Pt is awake and not in any distress. IVF and GTF are infusing well. Fall and safety precautions are in place.
--- NOTE | 2019-04-11 05:23 | NUR ---
Pt is resting quietly in bed. IVF is infusing well in LAC. Pt is tolerating GTF well. Fall and safety precautions are in place.
[2019-04-11] MEDS: LANSOPRAZOLE 30 MG CAPSULE.DR GT SCH (06:06)
--- NOTE | 2019-04-11 06:46 | NUR ---
Pt is awake and resting comfortably in bed. Accucheck 83 this AM. Skin remains warm and dry to touch. IVF is infusing well in LAC. GTF is in progress and well tolerated by pt. Fall and safety precautions are in place. Will endorse to day shift nurse.
[2019-04-11 07:22] LABS: ANION GAP 2 (5-15); CALCIUM 9.4 mg/dL (8.4-11.0); CHLORIDE 105 mmol/L (98-107); GLUCOSE 89 mg/dL (70-99); POTASSIUM 4.4 mmol/L (3.5-5.1); SODIUM SERUM 141 mmol/L (136-145); UREA NITROGEN, BLOOD 7 mg/dL (8-21)
[2019-04-11 07:59] LABS: BASOPHILS % (AUTO) 0.7 % (0.0-2.0); EOSINOPHILS # (AUTO) 0.1 K/uL (0.0-0.4); HEMATOCRIT 39.4 % (36-48); HEMOGLOBIN 13.1 g/dL (12.0-16.0); LYMPHOCYTES # (AUTO) 1.4 K/uL (1.0-5.5); LYMPHOCYTES % (AUTO) 40.6 % (20.5-51.5); MEAN CORPUSCULAR HEMOGLOBIN 30 pg (27-31); MEAN CORPUSCULAR HGB CONC 33 % (32-36); MEAN CORPUSCULAR VOLUME 90 fL (79.0-98.0); MONOCYTES # (AUTO) 0.5 K/uL (0.0-1.0); MONOCYTES % (AUTO) 13.4 % (1.7-9.3); NEUTROPHILS # (AUTO) 1.4 K/uL (1.8-7.7); NEUTROPHILS % (AUTO) 41.3 % (40.0-70.0); PLATELET COUNT (AUTO) 203 K/uL (130-430); RED BLOOD CELL COUNT(AUTO) 4.35 MIL/uL (4.2-6.2); RED CELL DISTRIBUTION WIDTH 17.7 % (9.0-15.0); WHITE BLOOD COUNT (AUTO) 3.4 K/uL (4.8-10.8)
[2019-04-11 08:00] VITALS: BP_SYST 150
--- NOTE | 2019-04-11 08:00 | NUR ---
initial notes rec patient asleep but aorusable to stimuli. no periods of confusion at this time. ivf infusing well on the l ac. no infiltration noted. resp easy and unlabored. no sob noted. bed to the lowest position and side rails up and locked. call light within reached and patient is close to the nurses station. will continue to monitor patient.
[2019-04-11] MEDS: CARBIDOPA/LEVODOPA 25/100 MG TABLET GT SCH ×2 (09:35→15:42)
[2019-04-11] MEDS: MULTIVIT-MINERALS/FERROUS GLUC 15 ML UDC GT SCH (09:35)
[2019-04-11] MEDS: DOCUSATE SODIUM 100 MG/10 ML UDC GT SCH (09:35)
[2019-04-11] MEDS: FLUoxetine HCL 20 MG CAPSULE (PROzac) GT SCH (09:35)
--- NOTE | 2019-04-11 10:00 | NUR ---
rounds due meds given as ordered through the gt and lynda well. no sob noted. pt is incontinent of urine . was changed and keep patient dry and clean.turned repositioned for consult. no sob noted. sleeps at intervals.
[2019-04-11 11:17] VITALS: BP_SYST 151
[2019-04-11] MEDS: DEXTROSE 50% JECT 50 ML DISP.SYRIN IVP PRN ×2 (12:33→18:13)
--- NOTE | 2019-04-11 12:45 | NUR ---
rounds blood sugar was 64 when checked and was given d50 at bedside and lynda well. dr adams called and ordered patient to go back to sn[facility].
--- NOTE | 2019-04-11 13:01 | NUR ---
Discharge Planning: DCP faxed pt referral to [facility] (f [phone] p [phone]) DCP to follow up. Addendum: 04/11/19 at 1458 by Yvette Zavaleta DP DCP called to follow up, Karyn stated the DON is reviewing. Addendum: 04/11/19 at 1614 by Yvette Zavaleta DP Patient accepted to [facility] (f [phone] p [phone]) RM 102, [facility] ([phone]) 6:00pm P/U nurse made aware patient packet taken to nurse station.
[2019-04-11 15:47] VITALS: BP_SYST 155
[2019-04-11 16:19] VITALS: BP_SYST 155
[2019-04-11] MEDS: VALPROIC ACID ORAL SYRUP 250 MG/5 ML UDC GT SCH (18:14)
== END 2019-04-11 19:10 | DRG 52 ==
LOC: SED 15:57 → STU 18:15
PROVIDERS: ADMIT Internal Medicine; ATTEND Internal Medicine
DX: G93.40 Encephalopathy, unspecified (principal); E43 Unspecified severe protein-calorie malnutrition; I95.9 Hypotension, unspecified; E11.649 Type 2 diabetes mellitus with hypoglycemia without coma; G20 Parkinson's disease; D64.9 Anemia, unspecified; F02.80 Dementia in other diseases classified elsewhere, unspecified severity, without behavioral disturbance, psychotic disturbance, mood disturbance, and anxiety; N39.0 Urinary tract infection, site not specified; F20.9 Schizophrenia, unspecified; K21.9 Gastro-esophageal reflux disease without esophagitis; I25.10 Atherosclerotic heart disease of native coronary artery without angina pectoris; E05.90 Thyrotoxicosis, unspecified without thyrotoxic crisis or storm; F32.9 Major depressive disorder, single episode, unspecified; M81.0 Age-related osteoporosis without current pathological fracture; E03.9 Hypothyroidism, unspecified; I10 Essential (primary) hypertension; Z88.0 Allergy status to penicillin; Z88.6 Allergy status to analgesic agent; Z79.899 Other long term (current) drug therapy; Z79.84 Long term (current) use of oral hypoglycemic drugs; Z86.718 Personal history of other venous thrombosis and embolism
CPT/HCPCS: 36415; 70450-TC; 71045; 76770; 80048; 80053; 81000-TC; 82607; 82962; 84484; 85025; 85610-TC; 85730-TC; 87081; 87086; 87186-TC; 93005; 93880; 95816; 96361; 96374; 99285; G0378; G0480; G0481; J1815; J1956; J2060; J7030; J7042

== ENCOUNTER 2019-08-29 23:24 | Inpatient (IN) | payer MEDICAID, MEDICARE ==
[~2019-08-29] VITALS: Ht 157.5 cm; Wt 39.5 kg
[~2019-08-29 23:24] MED LIST: ACET325C6 GT; AMIN30LI2 GT; BISA10SU61 RC; CARB-61 GT; CHLO237L3 TP; CRAN1CAP8 GT; DEPL250/5 GT; DOCU250C71 GT; DONE10TA44 GT; NA P133E41 RC; OMEP20CA11 GT; PRO20 GT; UTI-Stat Liquid GT; [UNRECOGNIZED DRUG - CODE] GT
[2019-08-29 23:30] VITALS: BP_SYST 94
--- NOTE | 2019-08-29 23:38 | NUR ---
Patient to ER bed 3 to gown for evaluation. Side rails up. Report given to TOMA RUSH.
--- NOTE | 2019-08-29 23:40 | NUR ---
Pt brought in by ambulance. Pt awake, alert, confused and combative. Pt brought in for evaluation after preliminary results at [facility] indicated possible R medial lobe infiltrates. Facility states that patient was also combative with staff, spitting, striking. Pt incomprehensible speech at this time, screaming during any contact with caretakers/nursing staff. Pt agitated, lying in ed bed. VSS.
--- NOTE | 2019-08-29 23:40 | NUR ---
ER at bedside examining patient.
[2019-08-30] MEDS ORDERED: AZITHROMYCIN 500 MG in NS 250 ML IV ONE ×2
[2019-08-30] MEDS ORDERED: cefTRIAXone 1 GM in D5W 50 ML IV ONE ×2
[2019-08-30] MEDS ORDERED: NS 1000 ML IV.SOLN IV ONE
--- NOTE | 2019-08-30 00:51 | NUR ---
# 20 gauge angiocath placed to left ac. Use of asceptic technique. Opsite placed over site. Blood return noted. Blood for lab drawn from site. Flushed with 10 cc of normal saline. No evidence of infiltration noted. Patient tolerated well.
--- NOTE | 2019-08-30 01:10 | NUR ---
# 16 FR Carlson catheter with use of sterile technique. Immediate return of 20 cc dark yellow urine noted. Bedside drainage bag placed below level of bladder. Urine sample collected and sent to lab. Pt combative, spitting, scratching at staff during procedure. 4 staff member utilized to safely hold patient and perform procedure. Patient given carlson prior to admission. Patient unable to toilet self.
[2019-08-30 01:14] LABS: BASOPHILS % (AUTO) 0.2 % (0.0-2.0); EOSINOPHILS % (AUTO) 0.2 % (0.0-4.0); HEMATOCRIT 38.7 % (36-48); HEMOGLOBIN 12.8 g/dL (12.0-16.0); LYMPHOCYTES # (AUTO) 1.2 K/uL (1.0-5.5); LYMPHOCYTES % (AUTO) 23.3 % (20.5-51.5); MEAN CORPUSCULAR HEMOGLOBIN 31 pg (27-31); MEAN CORPUSCULAR HGB CONC 33 % (32-36); MEAN CORPUSCULAR VOLUME 92 fL (79.0-98.0); MONOCYTES # (AUTO) 0.8 K/uL (0.0-1.0); MONOCYTES % (AUTO) 14.3 % (1.7-9.3); NEUTROPHILS # (AUTO) 3.3 K/uL (1.8-7.7); PLATELET COUNT (AUTO) 225 K/uL (130-430); WHITE BLOOD COUNT (AUTO) 5.3 K/uL (4.8-10.8)
[2019-08-30 01:21] LABS: BILIRUBIN,URINE NEGATIVE (NEGATIVE); BLOOD, URINE NEGATIVE (NEGATIVE); CLARITY/URINE SL CLOUDY (CLEAR); COLOR,URINE YELLOW (YELLOW); GLUCOSE,URINE NEGATIVE (NEGATIVE); KETONES,URINE TRACE (NEGATIVE); LEUKOCYTE ESTERASE ,URINE TRACE (NEGATIVE); NITRITE, URINE POSITIVE (NEGATIVE); PROTEIN URINE NEGATIVE (NEGATIVE)
[2019-08-30 01:23] LABS: UROBILINOGEN,URINE >=8 (0.2-1.0)
[2019-08-30 01:25] LABS: ANION GAP 6 (5-15); CALCIUM 9.2 mg/dL (8.4-11.0); CHLORIDE 100 mmol/L (98-107); CREATININE 0.52 mg/dL (0.55-1.30); GLUCOSE 96 mg/dL (70-99); POTASSIUM 4.1 mmol/L (3.5-5.1); SODIUM SERUM 141 mmol/L (136-145); UREA NITROGEN, BLOOD 29 mg/dL (8-21)
[2019-08-30 01:29] LABS: INR 0.9 (0.8-1.2); PROTHROMBIN TIME 9.5 SECS (9.5-12.5)
[2019-08-30] MEDS ORDERED: cefTRIAXone 1 GM VIAL ONE (01:29)
[2019-08-30] MEDS ORDERED: AZITHROMYCIN 500 MG/VIAL (ZITHROMAX) IV ONE (01:30)
[2019-08-30 01:31] LABS: ALANINE AMINOTRANSFERASE 53 U/L (12-78); ALBUMIN 2.4 g/dL (3.4-4.8); ASPARTATE AMINOTRANSFERASE 56 U/L (10-37); TOTAL BILIRUBIN 0.7 mg/dL (0.0-1.0)
[2019-08-30 01:46] LABS: BACTERIA,URINE MODERATE /HPF (None Seen); RBC,URINE 0-3 /HPF (0-3)
--- NOTE | 2019-08-30 01:50 | NUR ---
Pt resting in ED bed. Tolerating IV antibiotics well, no s/s of infiltration or adverse reaction
[2019-08-30] MEDS ORDERED: OMEP20CA11 GT (02:40)
[2019-08-30] MEDS ORDERED: AMIN30LI2 GT (02:40)
[2019-08-30] MEDS ORDERED: MOM GT (02:40)
[2019-08-30] MEDS ORDERED: ACET-2634 GT (02:40)
[2019-08-30] MEDS ORDERED: CHLO237L3 TP (02:40)
[2019-08-30] MEDS ORDERED: FLEETMO RC (02:40)
[2019-08-30] MEDS ORDERED: ASCO500T20 GT (02:40)
[2019-08-30] MEDS ORDERED: ACET325T53 GT (02:40)
--- NOTE | 2019-08-30 02:41 | NUR ---
Medication reconciliation completed with information provided by [facility]. Any prior medication reconciliation on file was reviewed and corrected.
[2019-08-30] MEDS ORDERED: OSELTAMIVIR PHOSPHATE 6 MG/1 ML, 60 ML SUSP PO ONE (03:15)
--- NOTE | 2019-08-30 03:15 | NUR ---
Patient will be admitted to care of . Admitted to tele unit. Will go to room 121A. Belongings list completed. Complete and up to date summary report printed. SBAR report to be given at bedside with opportunity for questions.
[2019-08-30] MEDS ORDERED: OSELTAMIVIR PHOSPHATE 6 MG/1 ML, 60 ML SUSP ONE (03:48)
--- NOTE | 2019-08-30 04:30 | NUR ---
Pt resting in ED bed comfortably, no acute distress.
[2019-08-30] MEDS: NACL 0.9% 1,000 ML IV SCH ×2 (05:10→16:20)
--- NOTE | 2019-08-30 05:26 | NUR ---
Transfer to tele via ACLS protocol. Licensed nurse present. IV present no signs or symptoms of infiltration.
--- NOTE | 2019-08-30 05:33 | NUR ---
CONSULTATION PAGED/CALLED Reason for Consultation: PNA Person Who was Notified:LIZETTE Consulting Physician: DIMITRI Line Crew Supervisor Specialty: Ordering Physician: RUCHI
[2019-08-30] MEDS ORDERED: FLUoxetine HCL 20 MG CAPSULE (PROzac) PO ONE (09:30)
[2019-08-30] MEDS ORDERED: MULTIVIT-MINERALS/FERROUS GLUC 15 ML UDC GT ONE (09:30)
[2019-08-30] MEDS ORDERED: CARBIDOPA/LEVODOPA 25/100 MG TABLET PO ONE (09:30)
--- NOTE | 2019-08-30 10:00 | NUR ---
MEDICATION INFORMED TO PHARMACY PHARMACY DISPENSED MEDS AND GIVEN
[2019-08-30] MEDS ORDERED: DOCUSATE SODIUM 100 MG/10 ML UDC ONE (10:37)
--- NOTE | 2019-08-30 11:38 | NUR ---
RN INIITAL NOTES RECEIVED PATIENT IN BED CONFUSED AND RESTLESS LIKE SCRATCHING WHENEVER SHE IS TOUCHED , PATIENT SPITS AND KICKS AT THIS TIME PATIENT WITH BILAT WRIST RESTTRAIN SHE BITES AND PULLS IV TUBING AND SHE TRIED TO KICK AND TRIED TO PULL HER TREVIÑO CATHETER, WITH ORDER FOR WRIST RESTRAIN AND BILATERAL MITTENS ORDERED , IVF TO LEFT AC AND WITH ABDOMINAL BINDER TO GTUBE ,ON BOLUS FEEDING
[2019-08-30 12:20] VITALS: BP_SYST 116
--- NOTE | 2019-08-30 13:00 | NUR ---
AGITATED , PULLING HER TUBES PATIENT REDIRECTED AND CHANGED BUT PATIENT SCRATCHED AND KICKS STAFF WHEN BEING CHANGED AND VERBALLY ABUSIVE IN ANGUILLAN WORDS, EXPLAINED CALMLY BUT PATIENT SPITS AND CONTINOUSLY KICKS AND CURSED , WILL MONITOR AND GIVE PRN MEDS
[2019-08-30] MEDS: LORazepam 2 MG/ML VIAL IVP PRN (13:41)
--- NOTE | 2019-08-30 14:38 | NUR ---
SLEEPING PATIENT FINALLY RELAXED AND AFTER ATIVAN GIVEN PATIENT SLEEPING AND RESTED MONITORED VS CHECKED BP 92/65 HR 68 O2 SAT 97% 16 T 98, WILL CHANGE ABDOMINAL BINDER
[2019-08-30 16:23] VITALS: BP_SYST 96
--- NOTE | 2019-08-30 18:17 | NUR ---
ENDORSEMENT CALLED DR HOPPER TO VERIFY MEDS RECONCILLATION SAID TO CONT MED LIST FROM SNF AND ORDERS NOTED , PATENT IS MORE CALMER AFTER ATIVAN GIVEN , WILL CONT CARE AND ATB Addendum: 08/30/19 at 1855 by Meg Muhamamd RN MEDICATION ORDERS ALL MEDS ORDER TO BE VERIFIED BY PHARMACIST RICHARD HARRISON
[2019-08-30] MEDS ORDERED: MINERAL OIL 133 ML ENEMA RC PRN (18:45)
[2019-08-30] MEDS ORDERED: BISACODYL 10 MG/SUPPOSITORY RC PRN (18:45)
[2019-08-30] MEDS ORDERED: ACETAMINOPHEN 650 MG/20.3 ML UDC GT PRN ×2 (18:45)
[2019-08-30 19:40] VITALS: BP_SYST 110
--- NOTE | 2019-08-30 19:40 | NUR ---
INITIAL NOTES PATIENT IS STABLE. NO S/S OF RESPIRATORY DISTRESS. BED IS LOCKED, ALARMED, AND AT THE LOWEST POSITION. PATIENT UNSUCCESSFULLY DEMONSTRATES USAGE OF CALL LIGHT AT THIS TIME. PLAN OF CARE IS DISCUSSED WITH PATIENT AT THIS TIME. FALL, SAFETY, ASPIRATION, AND RESPIRATORY PRECAUTIONS WILL BE PLACE THROUGHOUT THE SHIFT. Q2 HOURS RESTRAINT MONITORING WILL BE IN PLACE THROUGHOUT THE SHIFT.
[2019-08-30] MEDS ORDERED: VALPROIC ACID ORAL SYRUP 250 MG/5 ML UDC GT SCH (21:00)
[2019-08-30] MEDS: CARBIDOPA/LEVODOPA 25/100 MG TABLET GT SCH (22:11)
[2019-08-31] MEDS: cefTRIAXone 1 GM IVPB PREMIX 50 ML IV SCH (00:16)
--- NOTE | 2019-08-31 00:32 | NUR ---
GLUCERNA BOLUS GIVEN AT THIS TIME. PATIENT TOLERATED WELL.
[2019-08-31] MEDS: AZITHROMYCIN 500 MG in NS 250 ML IV SCH (01:20)
[2019-08-31 01:25] VITALS: BP_SYST 106
[2019-08-31] MEDS: LANSOPRAZOLE 30 MG CAPSULE.DR GT SCH (06:29)
--- NOTE | 2019-08-31 06:30 | NUR ---
BOLUS GIVEN AT THIS TIME. PATIENT TOLERATED WELL. NO S/S OF RESPIRATORY DISTRESS.
--- NOTE | 2019-08-31 07:10 | NUR ---
CLOSING NOTES PATIENT IS STABLE. NO S/S OF RESPIRATORY DISTRESS. CALL LIGHT IN REACH. BED IS LOCKED, ALARMED, AND AT THE LOWEST POSITION. FALL, SAFETY, ASPIRATION, RESPIRATORY, AND CONTACT PRECAUTION HAS BE IN PLACE THROUGHOUT THE SHIFT. Q2 HOURS RESTRAINT MANAGEMENT WERE IN PLACE THROUGHOUT THE SHIFT. REPORT GIVEN TO AM NURSE BY BEDSIDE.
--- NOTE | 2019-08-31 07:30 | NUR ---
AM ROUNDS: PATIENT LYING ON THE BED. WITH BILATERAL SOFT WRIST RESTRAINT ON. SKIN INTACT.CALL LIGHT WITH IN REACH. BED LOCKED AT LOWEST POSITION. BED ALARM ON. NO DISTRESS.CONTINUE TO MONITOR.
[2019-08-31 08:53] VITALS: BP_SYST 107
--- NOTE | 2019-08-31 08:57 | NUR ---
Nutrition Update Carmine Scale 14 noted. Pt admitted for pneumonia. Diet: Glucerna 1.5 give via bolus 14hrs to provide 1422 cc/2133 kcal per day, bolus q4hr, 30 via GT BMI: 20.1 kg/m2 RD to follow per nutrition care standards.
[2019-08-31] MEDS: MULTIVIT-MINERALS/FERROUS GLUC 15 ML UDC GT SCH (09:06)
[2019-08-31] MEDS: NACL 0.9% 1,000 ML IV SCH (09:06)
--- NOTE | 2019-08-31 09:06 | NUR ---
Meds/G-Tube: No residuals prior to giving meds. Crushed meds given.Flushed with water and tolerated it well.
[2019-08-31] MEDS: CARBIDOPA/LEVODOPA 25/100 MG TABLET GT SCH ×3 (09:07→23:37)
[2019-08-31] MEDS: ASCORBIC ACID 500 MG TABLET GT SCH (09:07)
[2019-08-31] MEDS: FLUoxetine HCL 20 MG CAPSULE (PROzac) GT SCH (09:07)
[2019-08-31] MEDS ORDERED: metroNIDAZOLE 500 mg/NS 100 ML IV ONE (10:00)
--- NOTE | 2019-08-31 10:20 | NUR ---
Rn Rounds: Resting. No acute distress.
--- NOTE | 2019-08-31 12:00 | NUR ---
Glucerna Bolus: Due Glucerna 1.5 david 1 can per g-tube given as ordered. No residuals prior to giving meds. Flushed with water after the bolus.
[2019-08-31 12:47] VITALS: BP_SYST 103
--- NOTE | 2019-08-31 13:08 | NUR ---
Dietitian Recommendations * Recommend Glucerna 1.5 bolus feeding 1 can (8 oz/237 ml) Q6h (total 4 cans/day), Free Water Flush: 100 ml Q6h via GT Provides: 1424 kcal/day, 78 gm protein/day, and 571 ml free water/day Meets: 102% of upper end of estimated caloric needs and 98% of upper end of estimated protein needs LP, RD Please refer to Nutrition Assessment for details. Addendum: 08/31/19 at [address] Amended: Links added.
--- NOTE | 2019-08-31 15:00 | NUR ---
Meds/G-tube: Due meds given per g-tube.Flushed with water as ordered. No residuals prior to giving meds.
[2019-08-31] MEDS ORDERED: ACETAMINOPHEN 650 MG/20.3 ML UDC GT SCH (15:45)
[2019-08-31] MEDS ORDERED: BISACODYL 10 MG/SUPPOSITORY RC PRN (15:45)
[2019-08-31] MEDS ORDERED: MINERAL OIL 133 ML ENEMA RC SCH (15:45)
[2019-08-31] MEDS ORDERED: MILK OF MAGNESIA 30 ML UDC GT PRN (15:45)
[2019-08-31] MEDS ORDERED: ACETAMINOPHEN 500 MG TABLET GT SCH (15:45)
[2019-08-31 16:10] VITALS: BP_SYST 122
[2019-08-31] MEDS: VALPROIC ACID ORAL SYRUP 250 MG/5 ML UDC GT SCH (17:23)
--- NOTE | 2019-08-31 17:30 | NUR ---
Glucerna bolus: No residuals prior to giving meds. Glucerna bolus given per g-tube. Flushed with water after the bolus.No problem.
--- NOTE | 2019-08-31 18:30 | NUR ---
closing notes: Patient resting. G-tube clamped. Guerra in place. Bilateral soft wrist restraint/mittens on.Bed locked at lowest position. Bed alarm on. Safety measures rendered. Condition guarded.Not any distress.
[2019-08-31 20:00] VITALS: BP_SYST 128
--- NOTE | 2019-08-31 20:00 | NUR ---
Pt was received resting in bed awake, but confused and disoriented. Pt is oriented to her name only. No acute distress noted at this time. IVF of NS is infusing well in LAC at 75ml/hr without any signs of infiltration at the IV site. G tube is clamped. Bilateral wrist restraints and hand mittens are on and no circulatory impairment noted. Guerra cath to gravity drainage noted with clear yellowish urine. Fall and safety precautions are in place.
[2019-08-31] MEDS ORDERED: CARBIDOPA/LEVODOPA 25/100 MG TABLET GT SCH (21:00)
--- NOTE | 2019-08-31 22:00 | NUR ---
No distress noted. Oral suctioning done.
[2019-08-31] MEDS: metroNIDAZOLE 500 mg/NS 100 ML IV SCH (23:36)
[2019-08-31] MEDS: DONEPEZIL HCL 5 MG TABLET (ARICEPT) GT SCH (23:38)
--- NOTE | 2019-09-01 | NUR ---
Bolus G Tube Feeding given. Residual 0ml. HOB elevated 45 degrees to prevent aspiration.
[2019-09-01] MEDS: NACL 0.9% 1,000 ML IV SCH ×3 (00:24→19:03)
[2019-09-01] MEDS: cefTRIAXone 1 GM IVPB PREMIX 50 ML IV SCH ×2 (00:34→23:39)
[2019-09-01] MEDS: AZITHROMYCIN 500 MG in NS 250 ML IV SCH (01:06)
--- NOTE | 2019-09-01 02:00 | NUR ---
IVF is infusing well in LAC. Wrist restraints are on and no circulatory impairment noted.
[2019-09-01 02:34] VITALS: BP_SYST 129
--- NOTE | 2019-09-01 03:35 | NUR ---
LAB CALLED : DARÍO FROM LAB CALLED AND REPORTED PT IS POSITIVE FOR GRAM POSITIVE COCCI IN CLUSTER IN BLOOD CULTURE , RN CHECKED THE MICROBIOLOGY RESULT IT SHOWS NO GROWTH AFTER 48 HRS, CALLED DARÍO AND NOTIFIED HIM THAT PER COMPUTER LAB RESULT IT SHOWS NO GROWTH . HE CONFIRMED THE PT NAME AND BLOOD CULTURE RESULT AGAIN . NOTIFIED PRIMARY RN .
--- NOTE | 2019-09-01 04:00 | NUR ---
Pt is spitting up lots of saliva and also coughing up thick brownish sputum. Oral suctioning done. Pt uncooperative. IVF is infusing well in LAC. Fall and safety precautions are in place.
--- NOTE | 2019-09-01 06:00 | NUR ---
Pt remains confused and disoriented. Wrist restraints are on and no circulatory impairment noted. Bolus G Tube Feeding given. Residual 0ml. HOB elevated 45 degrees to prevent aspiration. IVF is infusing well in LAC. Fall and safety precautions are in place.
[2019-09-01] MEDS: LANSOPRAZOLE 30 MG CAPSULE.DR GT SCH (06:15)
[2019-09-01 08:50] VITALS: BP_SYST 125
--- NOTE | 2019-09-01 08:50 | NUR ---
Routine Patient resting in bed with eyes closed. No distress noted at this time.
[2019-09-01] MEDS ORDERED: ASCORBIC ACID 500 MG TABLET GT SCH (09:00)
[2019-09-01] MEDS ORDERED: FLUoxetine HCL 20 MG CAPSULE (PROzac) GT SCH (09:00)
[2019-09-01] MEDS ORDERED: OMEPRAZOLE Non-Formulary 20 MG CAPSULE.DR GT SCH (09:00)
[2019-09-01] MEDS: FLUoxetine HCL 20 MG CAPSULE (PROzac) GT SCH (09:53)
[2019-09-01] MEDS: DOCUSATE SODIUM 100 MG/10 ML UDC GT SCH (09:53)
[2019-09-01] MEDS: CARBIDOPA/LEVODOPA 25/100 MG TABLET GT SCH ×3 (09:53→21:14)
[2019-09-01] MEDS: ASCORBIC ACID 500 MG TABLET GT SCH (09:53)
[2019-09-01] MEDS: metroNIDAZOLE 500 mg/NS 100 ML IV SCH ×2 (09:54→21:14)
[2019-09-01] MEDS: CHLORHEXIDINE GLUCONATE 15 ML/DOSE, 480 ML MM SCH (09:54)
--- NOTE | 2019-09-01 09:55 | NUR ---
Routine Patient resting in bed with copious amount of saliva. Patient has bilateral restraints and mittens. Scheduled medications given per order. Patient stable at this time.
--- NOTE | 2019-09-01 11:00 | NUR ---
Routine Patient resting comfortably in bed with no distress noted. Patient stable at this time.
[2019-09-01 12:00] VITALS: BP_SYST 122
[2019-09-01 12:46] VITALS: BP_SYST 102
--- NOTE | 2019-09-01 12:48 | NUR ---
Routine 250 ml bolus of Glucerna 1.2 given via G-tube. Patient very restless; attempting to hit, scratching,and spitting. Restraints still in place. Patient stable.
[2019-09-01] MEDS: MULTIVIT-MINERALS/FERROUS GLUC 15 ML UDC GT SCH (14:56)
--- NOTE | 2019-09-01 14:57 | NUR ---
Routine Scheduled medications give per order. Patient stable at this time.
--- NOTE | 2019-09-01 16:10 | NUR ---
Routine Patient had brown, loose bowel movement. Patient was cleaned and repositioned. Patient stable at this time.
[2019-09-01 16:20] VITALS: BP_SYST 129
[2019-09-01] MEDS: VALPROIC ACID ORAL SYRUP 250 MG/5 ML UDC GT SCH (17:44)
--- NOTE | 2019-09-01 17:48 | NUR ---
Patient resting quietly in bed with no distress noted. Scheduled medications and Glucerna 1.2 bolus of 250mls given. Patient stable at this time.
--- NOTE | 2019-09-01 19:52 | NUR ---
Godwin Marmolejo [phone], s/w Emiliana
[2019-09-01 20:00] VITALS: BP_SYST 110
--- NOTE | 2019-09-01 20:00 | NUR ---
INITIAL NOTES; PT IS CONFUSED , RESTLESS IN BED ; ON ROOM AIR , SAT 98% ; ASSESSMENT DONE ; PT IS SPITTING AND NOTICED SPIT AROUND THE MOUTH , PT CLEANED ORAL SUCTION PROVIDED ; ON CONTACT ISOLATION , WILLY WRIST AND MITTEN RESTRAINT IS ON ;IV ON THE LEFT FA NEAR TO AC , IV FLUID IS INFUSING WELL, NO S/S OF ANY INFILTRATION NOTICED ; PT HAS TREVIÑO CATH , DRAINING TO GRAVITY ,YELLOW COLOR URINE ;BED IN LOW AND LOCK POSITION , CALL GARCIA IN REACH ; WILL CONTINUE TO MONITOR PT
--- NOTE | 2019-09-01 20:13 | NUR ---
2nd Page for Dr. Marmolejo 2nd page for Dr. Mason Marmolejo, , mayda Nieto
--- NOTE | 2019-09-01 20:23 | NUR ---
CALLED BACK: DR Mason SANZ CALLED BACK , NOTIFIED MD THAT PTS BLOOD CULTURE IS POSITIVE FOR GRAM POSITIVE COCCI IN CLUSTER , AND ALSO NOTIFIED MD THAT DAY SHIFT RECEIVED A CALL REGARDING URINE CULTURE, PT IS POSITIVE FOR ECOLI AND MDRO OF THE URINE .ITS NOT UPDATED BY THE LAB IN THE SYSTEM . ALSO NOTIFIED MD THAT PT IS ON FLAGYL , ROCEPHIN AND ZITHROMAX . MD ORDERED TO ADD VANCOMYCIN PER PHARMACY AND 2 SETS OF BLOOD CULTURE NOW .
[2019-09-01] MEDS ORDERED: VANCOMYCIN HCL 500 MG in NS 100 ML IV SCH (21:00)
--- NOTE | 2019-09-01 21:08 | NUR ---
CALLED BACK : DR WELCH CALLED , INFORMED MD THAT PT IS DIABETIC AND NO ACCUCHECK IS ORDERED , MD ORDERED ACCU CHECK Q6 HRS AND COVERAGE WITH REGULAR INSULIN , ORDER ENTERED PER MD ORDERED .
[2019-09-01] MEDS: DONEPEZIL HCL 5 MG TABLET (ARICEPT) GT SCH (21:13)
[2019-09-01] MEDS ORDERED: INSULIN REGULAR, HUMAN 100 UNITS/ML, 10 ML VIAL (humuLIN R) SUBCUT PRN (21:15)
[2019-09-01] MEDS ORDERED: VANCOMYCIN HCL 500 MG/VIAL IV ONE (21:28)
--- NOTE | 2019-09-01 22:40 | NUR ---
SPONGE BATH / PERICARE: SPONGE BATH AND FRANCISCA CARE GIVEN ; PTS URINE IS LEAKING ; PT CLEANED , LINEN AND GOWN CHANGED ; PT TURNED AND REPOSITIONED , PT IS RESTLESS AT THIS TIME .
--- NOTE | 2019-09-01 23:50 | NUR ---
G T FEED: PER ORDER G T FEEDING BOLUS GIVEN , GT FLUSHED WELL ; BS WITH IN NORMAL LIMIT ; WILL CONTINUE TO MONITOR PT .PT WAS KICKING AND SPITTING WHILE DOING ACCU CHECK AND G T FEED .
--- NOTE | 2019-09-02 00:25 | NUR ---
RN NOTES: PT IS SLEEPING ON AND OFF ; NOT IN ANY ACUTE DISTRESS; WILL CONTINUE TO MONITOR PT .
[2019-09-02 00:30] VITALS: BP_SYST 129
[2019-09-02] MEDS: AZITHROMYCIN 500 MG in NS 250 ML IV SCH ×3 (00:42→15:12)
--- NOTE | 2019-09-02 02:25 | NUR ---
RN NOTES; PT IS SLEEPING ON AND OFF ; SPITTING ,ORAL CARE PROVIDED AND SUCTIONED ORALLY ; NO S/S OF ANY SECLUSION NOTICED ; ALL NEEDS ATTENDED ; WILL CONTINUE TO MONITOR PT .
--- NOTE | 2019-09-02 04:10 | NUR ---
RN ROUNDS: PT IS SLEEPING AT THIS TIME ;RESPIRATION IS EVENA ND NON LABORED ; WILL CONTINUE TO MONITOR PT .
[2019-09-02] MEDS: LANSOPRAZOLE 30 MG CAPSULE.DR GT SCH (06:07)
--- NOTE | 2019-09-02 06:08 | NUR ---
MEDICATION: DUE MEDICATION AND GT FEEDING BOLUS GIVEN PER ORDER, GT FLUSHED WELL ; PT IS COMFORTABLE ; NOT IN ANY ACUTE DISTRESS; Addendum: 09/02/19 at 0615 by Flakito Mcelroy RN Abigail T DRESSING : GT DRESSING REMOVED , CLEANED SITE , NO DRAINAGE NOTICED FROM STOMA SITE ; NEW DRESSING APPLIED .
--- NOTE | 2019-09-02 07:40 | NUR ---
CLOSING NOTES: REPORT GIVEN TO RN , PT IS COMFORTABLE ; NOT IN ANY ACUTE DISTRESS. ALL NEEDS ATTENDED . TREVIÑO IS DRAINING TO GRAVITY . IV FLUID IS INFUSING WELL .
[2019-09-02 07:58] VITALS: BP_SYST 116
[2019-09-02 08:32] LABS: CREATININE 0.33 mg/dL (0.55-1.30)
[2019-09-02] MEDS: MULTIVIT-MINERALS/FERROUS GLUC 15 ML UDC GT SCH (09:00)
[2019-09-02] MEDS: DOCUSATE SODIUM 100 MG/10 ML UDC GT SCH (09:00)
[2019-09-02] MEDS: FLUoxetine HCL 20 MG CAPSULE (PROzac) GT SCH (09:19)
[2019-09-02] MEDS: metroNIDAZOLE 500 mg/NS 100 ML IV SCH ×2 (09:19→22:05)
[2019-09-02] MEDS: CARBIDOPA/LEVODOPA 25/100 MG TABLET GT SCH ×3 (09:19→22:05)
[2019-09-02] MEDS: ASCORBIC ACID 500 MG TABLET GT SCH (09:20)
--- NOTE | 2019-09-02 11:00 | NUR ---
patient had large bowel movement. good lyndsey care provided. keep hob elevated to prevent aspiration.
[2019-09-02 11:29] VITALS: BP_SYST 106
--- NOTE | 2019-09-02 12:00 | NUR ---
bilateral wrist restraint removed but mitten keep for pt safety.episode of pulling tube/lines. excessive secretion from mouth noted. frequent oral suctioning need.
--- NOTE | 2019-09-02 14:11 | NUR ---
Discharge Planning: DCP faxed pt referral to [facility] (f [phone] p [phone]) DCP to follow up Addendum: 09/02/19 at 1643 by Yvette Zavaleta DP Karyn from [facility] (f [phone] p [phone]) gave Rm [id number] please call to confirm prior to discharge.
[2019-09-02] MEDS: NACL 0.9% 1,000 ML IV SCH (15:11)
[2019-09-02] MEDS: VANCOMYCIN HCL 750 MG/NS 250 ML IV SCH (15:22)
--- NOTE | 2019-09-02 16:00 | NUR ---
excessive oral secretion. frequent oral suction needed. pt had large bowel movement yellow color soft . good pericare provided. turn and reposition. padmini soft wrist and mitten on. pt keep on trying to kicking staff.
[2019-09-02 16:26] VITALS: BP_SYST 120
[2019-09-02] MEDS: VALPROIC ACID ORAL SYRUP 250 MG/5 ML UDC GT SCH (17:35)
[2019-09-02 17:48] VITALS: BP_SYST 115
--- NOTE | 2019-09-02 18:00 | NUR ---
sponge bath provided. pt gown is wet d/t excessive oral secretion. keep hob elevated to prevent aspiration.
--- NOTE | 2019-09-02 19:20 | NUR ---
initial notes: pt is sleeping, mouth is drooling saliva out. clean pt and suction. pt wakes up and get mad. pt is confused. pt has bilateral wrist restrain and mittens. pt has carlson drain to clear yellow urine. ivf is infusing to left ac gauge 18- intact and patent. pt has scd on bilateral leg. on contact isolation due history of esbl from snf. needs attended. side rails up. safety on. low bed position and alarm on. will monitor.
[2019-09-02] MEDS: DONEPEZIL HCL 5 MG TABLET (ARICEPT) GT SCH (22:05)
[2019-09-02 22:15] VITALS: BP_SYST 145
--- NOTE | 2019-09-02 22:20 | NUR ---
pt is awake, alert, stable, mouth care done due to drooling out saliva. pt is so agitated, kicking ans spiting on staff. vital sign is ok. will give prn ativan.
[2019-09-02] MEDS: LORazepam 2 MG/ML VIAL IVP PRN (22:21)
--- NOTE | 2019-09-02 23:00 | NUR ---
pt iv is pull out during clean, start new iv site to left fore gauge 20- good blood return. done aseptically. pt tolerate well. needs attended. will monitor.
[2019-09-02] MEDS: cefTRIAXone 1 GM IVPB PREMIX 50 ML IV SCH (23:23)
--- NOTE | 2019-09-03 | NUR ---
pt is resting. no sign of acute distress, no sob. pt mouth is clean and dry. no drooling at this time. blood sugar is 71. bolus of 1 can glucerna 1.5 and flush 100cc water via gtube is given. pt tolerate well. needs attended. side rails up. low bed position and alarm on. maintained on contact isolation. will monitor.
[2019-09-03 01:28] VITALS: BP_SYST 141
--- NOTE | 2019-09-03 02:13 | NUR ---
sleeping. no distress. no sob. stable. restrain check bilaterally. no sign of injury. good circulation, safety on. isolation. will monitor.
[2019-09-03] MEDS: NACL 0.9% 1,000 ML IV SCH ×3 (03:37→22:03)
--- NOTE | 2019-09-03 04:08 | NUR ---
sleeping, comfortable. no distress. no sob. stable. restrain check bilaterally. no sign of injury. good circulation, safety on. isolation. will monitor.
--- NOTE | 2019-09-03 05:53 | NUR ---
pt is resting, wakes up when clean. no drooling of saliva this time, blood sugar 67. glucerna given. needs attended, safety on. maintained on isolation. will monitor.
[2019-09-03] MEDS: LANSOPRAZOLE 30 MG CAPSULE.DR GT SCH (05:59)
--- NOTE | 2019-09-03 07:15 | NUR ---
closing: sleeping, comfortable. no distress. no sob. stable. restrain wrist and mitten bilaterally. no sign of injury. safety on. isolation. kept clean and dry. needs attended the whole shift. bed side endorsement given to am rn.
[2019-09-03 08:00] VITALS: BP_SYST 108
--- NOTE | 2019-09-03 08:00 | NUR ---
initial notes rec patient aslleep arousable to stimuli but confused. ivfinfusing well on the l forearm. no infiltration noted. bed to the lowest position and side rails up and locked. call ight within reached.
[2019-09-03] MEDS: DOCUSATE SODIUM 100 MG/10 ML UDC GT SCH (09:00)
[2019-09-03] MEDS: CHLORHEXIDINE GLUCONATE 15 ML/DOSE, 480 ML MM SCH (09:22)
[2019-09-03] MEDS: MULTIVIT-MINERALS/FERROUS GLUC 15 ML UDC GT SCH (09:22)
[2019-09-03] MEDS: ASCORBIC ACID 500 MG TABLET GT SCH (09:23)
[2019-09-03] MEDS: CARBIDOPA/LEVODOPA 25/100 MG TABLET GT SCH ×3 (09:23→21:55)
[2019-09-03] MEDS: FLUoxetine HCL 20 MG CAPSULE (PROzac) GT SCH (09:23)
[2019-09-03] MEDS: metroNIDAZOLE 500 mg/NS 100 ML IV SCH ×2 (09:23→21:55)
--- NOTE | 2019-09-03 10:00 | NUR ---
rounds due meds given and lynda well. no residual noted. sleeps at intervals. pt was suctioned to large amount of whitish phelgm orally and nares. tendency to spit when she can. turned repositioned for comfort.
--- NOTE | 2019-09-03 12:00 | NUR ---
rounds no hypo hyperglycemic reaction noted. suctioned prn.
[2019-09-03 12:06] VITALS: BP_SYST 121
[2019-09-03] MEDS: VANCOMYCIN HCL 750 MG/NS 250 ML IV SCH (15:27)
--- NOTE | 2019-09-03 15:49 | NUR ---
rounds seen by dr adams in the room. sleeps at intervals. no osb noted. continue to suction by mouth at intervals and with thin whitish phlegm.
[2019-09-03 16:15] VITALS: BP_SYST 98
[2019-09-03] MEDS: VALPROIC ACID ORAL SYRUP 250 MG/5 ML UDC GT SCH (17:48)
--- NOTE | 2019-09-03 18:08 | NUR ---
Nutrition F/U Admitting Diagnosis: Pneumonia RD reviewed pt's current EMR record including diet Hx, physician notes, nursing notes, pertinent labs/meds/procedures, care trends, and care activity. Medical History Comment: PMH: DM, HTN, dementia per physician notes. Pt also found w/ severe sepsis per physician notes Subjective Information: Pt seen resting in bed. RN reports pt continuing bolus feeding regimen, tolerating well. This is currently meeting 102% of upper end of estimated caloric needs and 98% of upper end of estimated protein needs. Last BM 09/02 per RN note. Current Diet Order/Nutrition Support Glucerna 1.5 bolus feeding 1 can (8 oz/237 ml) Q6h (total 4 cans/day), Free Water Flush: 100 ml Q6h via GT Provides: 1424 kcal/day, 78 gm protein/day, and 571 ml free water/day Meets: 102% of upper end of estimated caloric needs and 98% of upper end of estimated protein needs Skin Integrity Comment: Carmine scale: 14; no skin issues noted per EMR/RN report Estimated Energy Expenditure (kcals/day) 0579-2495 kcal/day (30-35 kcal/kg CBW for sepsis, wt gain promotion) Estimated Protein Required (g/day) 60-80 gm protein/day (1.5-2 gm/kg CBW for sepsis, wt gain promotion) Estimated Fluid Required (l/day) 1-1.2 L/day (25-30 ml/kg CBW for geriatric maintenance) Problem/Etiology/Signs/Symptoms Increased nutritional needs related to metabolic demands as evidenced by estimated nutritional requirements for sepsis and wt gain promotion. Expected Outcomes/Goals - Monitor tolerance to EN support w/ goal of pt meeting at least 75% of estimated nutritional needs, labs trending WNL, normal GI function, and skin integrity/wt maintenance Dietitian Recommendations * Continue Glucerna 1.5 bolus feeding 1 can (8 oz/237 ml) Q6h (total 4 cans/day), Free Water Flush: 100 ml Q6h via GT Follow Up High Risk: F/U in 2-3days
--- NOTE | 2019-09-03 18:10 | NUR ---
Dietitian Recommendations * Continue Glucerna 1.5 bolus feeding 1 can (8 oz/237 ml) Q6h (total 4 cans/day), Free Water Flush: 100 ml Q6h via GT Please see Nutrition Follow Up for further details. LT, RD
--- NOTE | 2019-09-03 18:56 | NUR ---
closing notes gt feeding of glucerna lynda well. no residual noted. no hypo hyperglycemic reaction noted. bed to the lowest position. side rails up and locked.
--- NOTE | 2019-09-03 19:55 | NUR ---
OPENING NOTES Report received from ADRI Bo. Patient is resting in bed, eyes closed, breathing evenly and nonlabored on room air. Patient has an IV on the left forearm 20g, patent and benign, IVF running, patient is tolerating it well. Patient is on bilateral soft wrist restraints and mittens for pulling lines, spitting, biting/scratching. Patient has a g-tube and a carlson catheter, secured and draining by gravity. Educated patient on plan of care, fall/safety/aspiration/isolation precautions, patient unable to state understanding due to cognitive limitations. Bed is locked, armed, and at lowest position, will continue to monitor.
[2019-09-03 20:00] VITALS: BP_SYST 97
[2019-09-03] MEDS: DONEPEZIL HCL 5 MG TABLET (ARICEPT) GT SCH (21:55)
--- NOTE | 2019-09-03 21:55 | NUR ---
MEDICATIONS/ROUNDS Patient is resting in bed, eyes closed, breathing evenly and nonlabored on room air. Educated patient on due medications, patient unable to state understanding due to cognitive limitations. Administered due medications, patient is tolerating them well. Patient continues to be in restraints and attempted to pull lines when released. No other needs at this time, fall/safety/aspiration/isolation precautions, will continue to monitor.
--- NOTE | 2019-09-03 23:20 | NUR ---
REPORT GIVEN TO RN FOR TRANSFER OF CARE
[2019-09-03 23:26] VITALS: BP_SYST 106
[2019-09-03] MEDS: cefTRIAXone 1 GM IVPB PREMIX 50 ML IV SCH (23:38)
[2019-09-04] MEDS: AZITHROMYCIN 500 MG in NS 250 ML IV SCH (00:43)
[2019-09-04] MEDS: LANSOPRAZOLE 30 MG CAPSULE.DR GT SCH (07:31)
--- NOTE | 2019-09-04 08:00 | NUR ---
initial notes rec patient asleep but arousable to stimuli. pt is confused and with padmini restraints in place. pt's mouth with large amount of whitish phlegm and was suctioned and obtained foamy phlegm. resp easy and unlabored. bed to the lowest position and side rails up and locked. call light withn reached. on contact isolation.
[2019-09-04 08:35] VITALS: BP_SYST 108
[2019-09-04] MEDS: DOCUSATE SODIUM 100 MG/10 ML UDC GT SCH (09:00)
[2019-09-04] MEDS: metroNIDAZOLE 500 mg/NS 100 ML IV SCH (09:14)
--- NOTE | 2019-09-04 10:00 | NUR ---
rounds due meds given through the gt and lynda well. continue to suction at intervals with foamy whitish phlegm.
[2019-09-04] MEDS: FLUoxetine HCL 20 MG CAPSULE (PROzac) GT SCH (10:20)
[2019-09-04] MEDS: MULTIVIT-MINERALS/FERROUS GLUC 15 ML UDC GT SCH (10:20)
[2019-09-04] MEDS: CARBIDOPA/LEVODOPA 25/100 MG TABLET GT SCH ×3 (10:20→20:34)
[2019-09-04] MEDS: ASCORBIC ACID 500 MG TABLET GT SCH (10:20)
[2019-09-04] MEDS: CHLORHEXIDINE GLUCONATE 15 ML/DOSE, 480 ML MM SCH (10:20)
[2019-09-04 12:56] VITALS: BP_SYST 124
--- NOTE | 2019-09-04 13:00 | NUR ---
rounds no hypo/ hyperglycemic reaction noted. gt feeding was given and lynda well. turned repositioned for comfort. resting comfortably
[2019-09-04] MEDS: metroNIDAZOLE 250 mg/NS 50 ML IV SCH (13:24)
--- NOTE | 2019-09-04 14:00 | NUR ---
rounds seen by dr gary ortega and dr adams. dr ortega stated to d/c the isolation.
--- NOTE | 2019-09-04 14:39 | NUR ---
Case mgt: Rec'd [facility] eval order this am--faxed order to [facility] at 1244 to fax#[phone]--Suzanne at [facility] rec'd the order--I faxed her additional H&P, prog notes, meds, labs--Pt is MDRO urine--Per Suzanne she will complete eval tomorrow [facility] on [facility]. ANTHONY RN
[2019-09-04] MEDS: VANCOMYCIN HCL 750 MG in NS 250 ML IV SCH (15:57)
--- NOTE | 2019-09-04 16:00 | NUR ---
rounds due meds was given and lynda well. suctioned prn. no sob noted.
[2019-09-04 17:00] VITALS: BP_SYST 116
[2019-09-04] MEDS: VALPROIC ACID ORAL SYRUP 250 MG/5 ML UDC GT SCH (18:32)
[2019-09-04] MEDS: NACL 0.9% 1,000 ML IV SCH (18:33)
--- NOTE | 2019-09-04 18:48 | NUR ---
closing notes resting comfortably, sleeping at intervals. bs was 67. will endorsed to recheck bs. no osb noted.
--- NOTE | 2019-09-04 19:55 | NUR ---
OPENING NOTES Report received from ADRI Bo. Patient is resting in bed, eyes closed, breathing evenly and nonlabored on room air. Patient has an IV on the left forearm 20g, patent and benign, IVF running, patient is tolerating it well. Patient is on bilateral soft wrist restraints and mittens for pulling lines, spitting, biting/scratching. Patient has a g-tube and a carlson catheter, secured and draining by gravity. Educated patient on plan of care, fall/safety/aspiration/isolation precautions, patient unable to state understanding due to cognitive limitations. Bed is locked, armed, and at lowest position. Will continue to monitor. Addendum: 09/05/19 at 0511 by Priyank Gonzalez RN BS checked at 1930: 125, correction: patient is no longer on isolation precautions.
[2019-09-04 20:05] VITALS: BP_SYST 104
[2019-09-04] MEDS: DONEPEZIL HCL 5 MG TABLET (ARICEPT) GT SCH (20:34)
--- NOTE | 2019-09-04 20:38 | NUR ---
MEDICATIONS/ROUNDS Patient is resting in bed, eyes closed, breathing evenly and nonlabored on room air. Educated patient on due medications, patient unable to state understanding due to cognitive limitations. Administered due medications, patient is tolerating them well. Patient continues to be in restraints and attempted to pull lines when released. No other needs at this time, fall/safety/aspiration precautions, will continue to monitor.
--- NOTE | 2019-09-04 22:30 | NUR ---
ROUNDS Patient is resting in bed, eyes closed, breathing evenly and nonlabored on room air. No s/s of distress at this time. No other needs at this time, fall/safety/aspiration precautions, will continue to monitor.
[2019-09-04] MEDS: cefTRIAXone 1 GM IVPB PREMIX 50 ML IV SCH (23:18)
--- NOTE | 2019-09-04 23:28 | NUR ---
MEDICATIONS/ROUNDS Patient is resting in bed, eyes closed, breathing evenly and nonlabored on room air. BS checked, no coverage needed. Educated patient on due medications, patient unable to state understanding due to cognitive limitations. Administered due medications, patient is tolerating them well. Patient continues to be in restraints, she attempted to pull lines when released. Bolus feeding started, patient is tolerating it well. No other needs at this time, fall/safety/aspiration precautions, will continue to monitor.
[2019-09-05 01:47] VITALS: BP_SYST 119
[2019-09-05] MEDS: metroNIDAZOLE 250 mg/NS 50 ML IV SCH ×2 (03:18→16:07)
[2019-09-05] MEDS: VANCOMYCIN HCL 750 MG in NS 250 ML IV SCH ×2 (03:18→16:17)
[2019-09-05] MEDS: LORazepam 2 MG/ML VIAL IVP PRN (03:26)
--- NOTE | 2019-09-05 03:30 | NUR ---
MEDICATIONS/ROUNDS Patient is resting in bed, awake, breathing evenly and nonlabored on room air. Patient continues to be in restraints, she was spitting, hitting, and kicking. Ativan given, patient tolerated it well. Educated patient on due medications, patient unable to state understanding due to cognitive limitations. Administered due medications, patient is tolerating them well. No other needs at this time, fall/safety/aspiration precautions, will continue to monitor.
[2019-09-05] MEDS: LANSOPRAZOLE 30 MG CAPSULE.DR GT SCH (06:12)
--- NOTE | 2019-09-05 06:30 | NUR ---
CLOSING NOTES Patient is resting in bed, eyes closed, breathing evenly and nonlabored on room air. Patient continues to be in restraints. Educated patient on due medications, patient unable to state understanding due to cognitive limitations. Administered due medications, patient is tolerating them well. Bolus feeding given, patient tolerated it well. Needs met throughout the shift. Fall/safety/aspiration precautions, will endorse care to morning shift RN.
[2019-09-05 07:44] LABS: BASOPHILS % (AUTO) 0.6 % (0.0-2.0); EOSINOPHILS # (AUTO) 0.1 K/uL (0.0-0.4); EOSINOPHILS % (AUTO) 1.7 % (0.0-4.0); HEMOGLOBIN 11.6 g/dL (12.0-16.0); LYMPHOCYTES % (AUTO) 28.6 % (20.5-51.5); MEAN CORPUSCULAR HEMOGLOBIN 30 pg (27-31); MEAN CORPUSCULAR HGB CONC 33 % (32-36); MEAN CORPUSCULAR VOLUME 91 fL (79.0-98.0); MONOCYTES # (AUTO) 0.5 K/uL (0.0-1.0); MONOCYTES % (AUTO) 14.6 % (1.7-9.3); NEUTROPHILS # (AUTO) 1.8 K/uL (1.8-7.7); NEUTROPHILS % (AUTO) 54.5 % (40.0-70.0); PLATELET COUNT (AUTO) 414 K/uL (130-430); RED BLOOD CELL COUNT(AUTO) 3.85 MIL/uL (4.2-6.2); RED CELL DISTRIBUTION WIDTH 16.1 % (9.0-15.0); WHITE BLOOD COUNT (AUTO) 3.4 K/uL (4.8-10.8)
--- NOTE | 2019-09-05 08:00 | NUR ---
initial notes rec patient asleep but arousable to stimuli.ivf infusing well on the l forearm. no infiltration noted. bed to the lowest position and side rails up and locked. pt was suctioned obtaining white frothy from the mouth. will continue to monitor patient.
[2019-09-05 08:09] LABS: ALANINE AMINOTRANSFERASE 13 U/L (12-78); ALBUMIN 1.7 g/dL (3.4-4.8); ASPARTATE AMINOTRANSFERASE 12 U/L (10-37); CHLORIDE 101 mmol/L (98-107); CREATININE 0.28 mg/dL (0.55-1.30); GLUCOSE 84 mg/dL (70-99); SODIUM SERUM 130 mmol/L (136-145); TOTAL BILIRUBIN 0.3 mg/dL (0.0-1.0); UREA NITROGEN, BLOOD 13 mg/dL (8-21)
[2019-09-05 08:15] LABS: ANION GAP < 3 (5-15)
[2019-09-05] MEDS: DOCUSATE SODIUM 100 MG/10 ML UDC GT SCH (09:00)
[2019-09-05] MEDS: FLUoxetine HCL 20 MG CAPSULE (PROzac) GT SCH (10:19)
[2019-09-05] MEDS: CARBIDOPA/LEVODOPA 25/100 MG TABLET GT SCH ×4 (10:19→20:54)
[2019-09-05] MEDS: ASCORBIC ACID 500 MG TABLET GT SCH (10:19)
[2019-09-05] MEDS: CHLORHEXIDINE GLUCONATE 15 ML/DOSE, 480 ML MM SCH (10:20)
[2019-09-05] MEDS: MULTIVIT-MINERALS/FERROUS GLUC 15 ML UDC GT SCH (10:20)
[2019-09-05] MEDS: NACL 0.9% 1,000 ML IV SCH ×2 (10:23→20:54)
[2019-09-05 12:00] VITALS: BP_SYST 126
[2019-09-05 16:18] VITALS: BP_SYST 100
[2019-09-05] MEDS: VALPROIC ACID ORAL SYRUP 250 MG/5 ML UDC GT SCH (17:29)
--- NOTE | 2019-09-05 18:30 | NUR ---
closing notes pt is asleep. gt feeding was given and lynda well. no residual noted. no hypo hyperglycemic reaction noted. padmini mittens and wrist restraints in placed. con came and updated re patient condition. dr adams and dr ortgea's and lisbeth rendon 's numbed were given for further questions for them
--- NOTE | 2019-09-05 19:20 | NUR ---
Opening Note Received report from daysanuragft RN, patient is resting in bed, patient is confused and restless in bed, even and unlabored breathing on room air, IV to left FA intact and infusing well, patent/benign, Guerra catheter draining to gravity, G-tube is clamped, 0mL of residual noted, bilateral soft wrist restraints and mittens in place, no signs of injury noted. Safety and fall precautions in place, aspiration precautions in place, bed locked and in lowest position, side rails up, bed alarm on, call light with patient, will continue to monitor.
[2019-09-05 20:00] VITALS: BP_SYST 128
[2019-09-05] MEDS: DONEPEZIL HCL 5 MG TABLET (ARICEPT) GT SCH (20:54)
--- NOTE | 2019-09-05 20:54 | NUR ---
Med Pass Patient is resting in bed, educated patient on 2100 scheduled medications, patient unable to verbalize understanding, patient is confused, 0mL residual noted, administered medication per MD order, patient tolerated well. Safety, fall, and aspiration precautions in place, call light with patient, will continue to monitor.
--- NOTE | 2019-09-05 22:00 | NUR ---
Incontinence Care Patient had a BM. Incontinence care rendered by this RN and MARY Cervantes. Patient attempts to spit and pinch. Patient is clean, dry and repositioned. All safety precautions in place, david light with patient, will continue to monitor.
[2019-09-05] MEDS: cefTRIAXone 1 GM IVPB PREMIX 50 ML IV SCH (22:43)
--- NOTE | 2019-09-06 00:31 | NUR ---
Blood Sugar Patient's blood sugar is 72. No insulin coverage needed per insulin sliding scale at this time. All safety precautions in place, call light with patient, will continue to monitor.
[2019-09-06 00:54] VITALS: BP_SYST 126
[2019-09-06] MEDS: metroNIDAZOLE 250 mg/NS 50 ML IV SCH ×2 (01:53→13:41)
--- NOTE | 2019-09-06 02:00 | NUR ---
RN Rounds Patient is resting in bed, awake ad restless in bed, no signs of acute distress, provided suction, tolerating room air, hung scheduled antibiotic, IV infusing well, Guerra catheter draining to gravity, bilateral soft wrist and mitten restraints in place, 0 residual noted, gave bolus of 8oz Glucerna1.5 via G-tube, patient tolerated well. All safety precautions in place, call light with patient, will continue to monitor.
--- NOTE | 2019-09-06 02:46 | NUR ---
MD Rounds Dr. Jaleel Seth at bedside, aware of patient's status, no new orders given at this time.
[2019-09-06] MEDS: VANCOMYCIN HCL 750 MG in NS 250 ML IV SCH (03:35)
--- NOTE | 2019-09-06 04:20 | NUR ---
RN Rounds Patient is resting in bed, patient is confused, tolerating room air, IV infusing well, patent/benign, Guerra catheter draining to gravity, G-tube is clamped, 0mL of residual noted, bilateral soft wrist restraints and mittens in place, no signs of injury noted. Safety, fall and aspiration precautions in place, bed locked and in lowest position, side rails up, bed alarm on, call light with patient, will continue to monitor.
--- NOTE | 2019-09-06 05:10 | NUR ---
Blood Sugar Patient's blood sugar is 73. No insulin coverage needed per insulin sliding scale at this time. All safety precautions in place, call light with patient, will continue to monitor.
[2019-09-06] MEDS: LANSOPRAZOLE 30 MG CAPSULE.DR GT SCH (06:12)
--- NOTE | 2019-09-06 06:51 | NUR ---
Closing Note Patient is resting in bed, patient is confused and restless in bed, attempted to kick when administering 0700 scheduled medication, even and unlabored breathing on room air, IV to left FA intact and infusing well, patent/benign, Guerra catheter draining to gravity, G-tube is clamped, 0mL of residual noted, bilateral soft wrist restraints and mittens in place, no signs of injury noted. Safety and fall precautions in place, aspiration precautions in place, bed locked and in lowest position, side rails up, bed alarm on, call light with patient, will endorse care to dayshift RN.
--- NOTE | 2019-09-06 07:30 | NUR ---
OPENING NOTES: RECEIVED PATIENT FROM CREASING MACHINE OPERATOR NURSE. PATIENT IS ASLEEP LAYING DOWN IN BED. PATIENT IS TOLERATING OXYGEN ON ROOM AIR WITH NO SIGNS OF DISTRESS OR SHORTNESS OF BREATH NOTED. IV SITE IS PATENT WITH NO SIGNS OF INFILTRATION NOTED. PATIENT IS ON SOFT WRIST RESTRAINTS AND MITTENS DUE TO PATIENT BEING CONFUSED AND ATTEMPTING TO PULL OUT LINES. NO SIGNS OF DECREASED CIRCULATION NOTED. TREVIÑO CATHETER INTACT AND DRAINING BY GRAVITY. PATIENT IN STABLE CONDITION. SAFETY, FALL, AND ASPIRATION PRECAUTIONS ARE IN PLACE. BED IS LOCKED IN LOWEST POSITION WITH CALL LIGHT IN REACH. WILL CONTINUE TO MONITOR PATIENT FOR ANY CHANGES.
[2019-09-06] MEDS: MULTIVIT-MINERALS/FERROUS GLUC 15 ML UDC GT SCH (08:45)
[2019-09-06] MEDS: CARBIDOPA/LEVODOPA 25/100 MG TABLET GT SCH ×3 (08:45→21:22)
[2019-09-06] MEDS: DOCUSATE SODIUM 100 MG/10 ML UDC GT SCH (08:45)
[2019-09-06 08:46] VITALS: BP_SYST 140
[2019-09-06] MEDS: ASCORBIC ACID 500 MG TABLET GT SCH (08:46)
[2019-09-06] MEDS: FLUoxetine HCL 20 MG CAPSULE (PROzac) GT SCH (08:46)
--- NOTE | 2019-09-06 10:05 | NUR ---
RN ROUNDS: PATIENT IS ASLEEP LAYING DOWN IN BED. PATIENT IS ON BILATERAL SOFT WRIST RESTRAINTS AND MITTENS DUE TO PATIENT BEING CONFUSED AND ATTEMPTING TO PULL OUT LINES. NO SIGNS OF DECREASED CIRCULATION NOTED. PATIENT IN STABLE CONDITION. WILL CONTINUE TO MONITOR PATIENT FOR ANY CHANGES.
[2019-09-06] MEDS: NACL 0.9% 1,000 ML IV SCH ×2 (10:20→14:35)
[2019-09-06 12:00] VITALS: BP_SYST 137
--- NOTE | 2019-09-06 12:02 | NUR ---
RN ROUNDS: PATIENT IS ASLEEP LAYING DOWN IN BED. PATIENT WAS CHANGED AND CLEANED. PATIENT TOLERATED IT WELL. PATIENT IS ON BILATERAL SOFT WRIST RESTRAINTS AND MITTENS DUE TO PATIENT ATTEMPTING TO PULL OUT LINES AND BEING CONFUSED. NO SIGNS OF DECREASED CIRCULATION NOTED. PATIENT IN STABLE CONDITION. WILL CONTINUE TO MONITOR PATIENT FOR ANY CHANGES.
--- NOTE | 2019-09-06 14:35 | NUR ---
RN ROUNDS/ ATTEMPT TO DC RESTRAINTS: PATIENT IS AWAKE LAYING DOWN IN BED. NO SIGNS OF DISTRESS OR SHORTNESS OF BREATH NOTED. WHILE THE PATIENT WAS TAKEN OUT OF RESTRAINTS FOR 15 MINUTES, SHE BEGAN TO SLIDE OUT OF BED AND PULL AT HER IV LINE. AN ATTEMPT TO REORIENT PATIENT WAS UNSUCCESSFUL. PATIENT IS PUT BACK ON BILATERAL SOFT WRIST AND MITTEN RESTRAINTS DUE TO PATIENT ATTEMPTING TO SLIDE OUT OF BED AND REMOVE MEDICAL LINES. NO SIGNS OF DECREASED CIRCULATION NOTED. IV SITE IS PATENT WITH NO SIGNS OF INFILTRATION NOTED. PATIENT IN STABLE CONDITION. WILL CONTINUE TO MONITOR PATIENT FOR ANY CHANGES.
--- NOTE | 2019-09-06 14:38 | NUR ---
Nutrition F/U Admitting Diagnosis: Pneumonia RD reviewed pt's current EMR record including diet Hx, physician notes, nursing notes, pertinent labs/meds/procedures, care trends, and care activity. Medical History Comment: PMH: DM, HTN, dementia per physician notes. Pt also found w/ severe sepsis per physician notes Subjective Information: Pt seen earlier this morning. In bed, on restraints, confused and tends to pull out lines. RD noted pt taking flagyl, +BM 09/06 x5. Per RN report, no residual, bolus feeding, skin is intact, no open wounds, pressure injury. Glucerna 1.5 in can is not available and pt will be receiving 5 cans Glucerna 1.2 (237ml) in can for bolus feeding. Labs: 09/05 Na 130L, K 4WNL, BG 84 WNL, BUN 13WNL, Cre 0.28L Current Diet Order/Nutrition Support Glucerna 1.5 bolus feeding 1 can (8 oz/237 ml) Q6h (total 4 cans/day), Free Water Flush: 100 ml Q6h via GT Estimated Energy Expenditure (kcals/day) 5089-7199 kcal/day (30-35 kcal/kg CBW for sepsis, wt gain promotion) Estimated Protein Required (g/day) 60-80 gm protein/day (1.5-2 gm/kg CBW for sepsis, wt gain promotion) Estimated Fluid Required (l/day) 1-1.2 L/day (25-30 ml/kg CBW for geriatric maintenance) Problem/Etiology/Signs/Symptoms Increased nutritional needs related to metabolic demands as evidenced by estimated nutritional requirements for sepsis and wt gain promotion. (*ongoing) Expected Outcomes/Goals - Monitor tolerance to EN support w/ goal of pt meeting at least 75% of estimated nutritional needs, labs trending WNL, normal GI function, and skin integrity/wt maintenance Dietitian Recommendations * Recommend: Glucerna 1.2 bolus feeding 1 can (237ml) Q6H (5 cans per day), FWF 100ml Q6h via GT Provides: 1425 kcal and 71 gm protein daily which meets: 102% of upper end of estimated calorie needs and 89% of upper end of est protein needs. Follow Up High Risk: F/U in 2-3days
--- NOTE | 2019-09-06 14:48 | NUR ---
Dietitian Recommendations * Recommend: Glucerna 1.2 bolus feeding 1 can (237ml) Q6H (5 cans per day), FWF 100ml Q6h via GT Provides: 1425 kcal and 71 gm protein daily which meets: 102% of upper end of estimated calorie needs and 89% of upper end of est protein needs. Please see Nutrition F/U note for details. SNF, RD
--- NOTE | 2019-09-06 15:25 | NUR ---
DC Planning: Barriers: on padmini. restraints. [facility] is a non restraints use facility, the pt is not accepting back until the pt is free of restraints.
[2019-09-06 16:01] VITALS: BP_SYST 120
--- NOTE | 2019-09-06 16:11 | NUR ---
RN ROUNDS: PATIENT IS ASLEEP LAYING DOWN IN BED. PATIENT IS ON BILATERAL SOFT WRIST RESTRAINTS WITH MITTENS DUE TO PATIENT ATTEMPTING TO SLIDE OUT OF BED AND PULL OUT MEDICAL LINES. NO SIGNS OF DECREASED CIRCULATION NOTED. IV SITE IS PATENT WITH NO SIGNS OF INFILTRATION NOTED. PATIENT IN STABLE CONDITION. WILL CONTINUE TO MONITOR PATIENT FOR ANY CHANGES.
[2019-09-06] MEDS: VALPROIC ACID ORAL SYRUP 250 MG/5 ML UDC GT SCH (17:32)
--- NOTE | 2019-09-06 18:39 | NUR ---
CLOSING NOTES: PATIENT IS ASLEEP LAYING DOWN IN BED. PATIENT IS TOLERATING OXYGEN ON ROOM AIR WITH NO SIGNS OF DISTRESS OR SHORTNESS OF BREATH NOTED. IV SITE IS PATENT WITH NO SIGNS OF INFILTRATION NOTED. PATIENT IS ON SOFT WRIST RESTRAINTS AND MITTENS DUE TO PATIENT BEING CONFUSED AND ATTEMPTING TO PULL OUT LINES. NO SIGNS OF DECREASED CIRCULATION NOTED. TREVIÑO CATHETER INTACT AND DRAINING BY GRAVITY. PATIENT IN STABLE CONDITION. SAFETY, FALL, AND ASPIRATION PRECAUTIONS REMAINED IN PLACE THROUGHOUT THE SHIFT. BED IS LOCKED IN LOWEST POSITION WITH CALL LIGHT IN REACH. WILL ENDORSE PATIENT CARE TO ONCOMING PROJECT ACCOUNT MANAGER NURSE.
--- NOTE | 2019-09-06 19:30 | NUR ---
called back Dr. Piña called and spoke w/ AM nurse, per MD he does not need to see pt before discharge. Pt can f/u as outpatient for BPH/Hematuria. Will endorse to AM nurse.
[2019-09-06 20:07] VITALS: BP_SYST 108
--- NOTE | 2019-09-06 20:07 | NUR ---
Opening notes Pt awake, oral care provided as pt salivating. VSS, afebrile. No s/s distress. Hayden wrists/mittens in place. Pt lifts up legs/kicks. Safety maintained. Bed alarm on. Pt on low air mattress. To monitor.
[2019-09-06] MEDS: cefTRIAXone 1 GM IVPB PREMIX 50 ML IV SCH (21:21)
[2019-09-06] MEDS: DONEPEZIL HCL 5 MG TABLET (ARICEPT) GT SCH (21:21)
--- NOTE | 2019-09-06 23:40 | NUR ---
Rounds/Pericare Pt asleep, easily arousable. Multiple oral care provided. Pt incontinent of soft large BM. Pericare provided. Guerra catheter draining to gravity with yellow urine. Pt repositioned. Safety maintained. HOB low fowlers position. To monitor.
[2019-09-07 00:58] VITALS: BP_SYST 122
[2019-09-07] MEDS: metroNIDAZOLE 250 mg/NS 50 ML IV SCH ×2 (01:26→15:17)
--- NOTE | 2019-09-07 05:30 | NUR ---
Rounds/Blood sugar Pt awake, confused, laughing. BS checked with help of X RAY TECHNOLOGIST to hold hand BS 78. Bolus GT feeding and water flushes given as ordered. Pt tolerating well. No residual noted. Abd binder on. Pt had a BM. To monitor.
[2019-09-07] MEDS: LANSOPRAZOLE 30 MG CAPSULE.DR GT SCH ×2 (05:36→08:36)
--- NOTE | 2019-09-07 06:49 | NUR ---
Closing notes Pt asleep, no s/s distress noted. Hayden wrist restraints/mittens on. IVF infusing at ordered rate L.FA 20G no s/s infiltration. Safety maintained. Bed low, locked, siderails up. To endorse to am nurse.
[2019-09-07] MEDS: DOCUSATE SODIUM 100 MG/10 ML UDC GT SCH (08:35)
[2019-09-07] MEDS: CARBIDOPA/LEVODOPA 25/100 MG TABLET GT SCH ×3 (08:35→20:51)
[2019-09-07] MEDS: ASCORBIC ACID 500 MG TABLET GT SCH (08:35)
[2019-09-07] MEDS: FLUoxetine HCL 20 MG CAPSULE (PROzac) GT SCH (08:35)
[2019-09-07] MEDS: MULTIVIT-MINERALS/FERROUS GLUC 15 ML UDC GT SCH (09:03)
[2019-09-07 11:42] VITALS: BP_SYST 124
[2019-09-07 12:46] VITALS: BP_SYST 122
[2019-09-07] MEDS: NACL 0.9% 1,000 ML IV SCH (13:00)
[2019-09-07 16:08] VITALS: BP_SYST 118
[2019-09-07] MEDS: VALPROIC ACID ORAL SYRUP 250 MG/5 ML UDC GT SCH (18:13)
[2019-09-07 19:00] VITALS: BP_SYST 120
[2019-09-07 20:00] VITALS: BP_SYST 119
--- NOTE | 2019-09-07 20:00 | NUR ---
RECEIVED PT IN BED CONFUSED RESTLESS SPITTING ,KICKING STAFF ,IV IN PLACE TREVIÑO IN PLACE ,PT ON CONTACT PRECAUTION,G TUBE IN PLACE WITH BOLUS FEED AND WATER FLUSHED ORDERED.
[2019-09-07] MEDS: DONEPEZIL HCL 5 MG TABLET (ARICEPT) GT SCH (20:52)
[2019-09-07] MEDS: cefTRIAXone 1 GM IVPB PREMIX 50 ML IV SCH (20:59)
--- NOTE | 2019-09-07 22:00 | NUR ---
PM CARE GIVEN REPOSITIONED MADE COMFORTABLE ,PT WITH WRIST IN PLACE ,NO DISTRESS NOTED
[2019-09-08] VITALS: BP_SYST 120
[2019-09-08] MEDS: metroNIDAZOLE 250 mg/NS 50 ML IV SCH ×2 (02:00→14:00)
[2019-09-08 02:10] VITALS: BP_SYST 136
[2019-09-08] MEDS: NACL 0.9% 1,000 ML IV SCH (02:20)
[2019-09-08 04:00] VITALS: BP_SYST 135
--- NOTE | 2019-09-08 04:00 | NUR ---
AM CARE GIVEN REPOSITIONED MADE COMFORTABLE ,IV INFILTRATED ,AC BS 60 D50 GIVEN PER PROTOCOL
[2019-09-08] MEDS ORDERED: DEXTROSE 50% JECT 50 ML DISP.SYRIN ONE (06:20)
--- NOTE | 2019-09-08 07:00 | NUR ---
AC AT THIS TIME 167
[2019-09-08] MEDS: ASCORBIC ACID 500 MG TABLET GT SCH (09:30)
[2019-09-08] MEDS: CARBIDOPA/LEVODOPA 25/100 MG TABLET GT SCH ×3 (09:30→21:26)
[2019-09-08] MEDS: DOCUSATE SODIUM 100 MG/10 ML UDC GT SCH (09:30)
[2019-09-08] MEDS: FLUoxetine HCL 20 MG CAPSULE (PROzac) GT SCH (09:31)
[2019-09-08] MEDS: MULTIVIT-MINERALS/FERROUS GLUC 15 ML UDC GT SCH (09:31)
[2019-09-08] MEDS: CHLORHEXIDINE GLUCONATE 15 ML/DOSE, 480 ML MM SCH (09:32)
--- NOTE | 2019-09-08 10:42 | NUR ---
DC Planning: Notified and requested auth for LTAC: s/w Candice/RENATO at [facility] # [phone], the pt will need continue IV ABX for another week. Pt is still confused and need med adjustment. She is on soft wrist restraints to prevent IV tube and GT pulling. Candice will call back with decision for auth after clinical review. He advised to use [facility] , no auth required for transportation. Addendum: 09/08/19 at 1049 by Estrella Basilio RN >> Per Suzanne, the pt is accepted at [facility]. She is waiting for authorization from [facility]/. Addendum: 09/08/19 at 1412 by Estrella Basilio RN >> Called back from [facility]: the pt is approved for LTAC transfer. Stated he already gave auth to [facility]. Suzanne made aware. The discharge is pending bed assignment.
--- NOTE | 2019-09-08 10:52 | NUR ---
DC Planning[phone] re transferring pt to [facility] possible this pm. Notified son Jam in [facility] # [phone] reasons for LTAC transfer. He is considering but preferred pt to stay here than going to LTAC. I will call him back to get his final ok once there is and authorization decision from [facility]. Addendum: 09/08/19 at 1557 by Estrella Basilio RN >> Per Suzanne: Pt is going to [facility] given bed 208B , RN to report # [phone]. >> I notified Jam/son to get the final okay to move pt to LTAC. He say no transfer until dr. Mason Marmolejo calls him, so that he can ask about pt recurrent infection. requested Ale[facility] to notify dr. Mason Marmolejo's cell phone. to call Jam at # [phone]. CM/RN need to verify with Jam again for the okay to transfer. -- ADRI Carr (Registry nurse) made aware.
[2019-09-08 12:10] VITALS: BP_SYST 138
[2019-09-08 14:18] LABS: INR 1.1 (0.8-1.2); PROTHROMBIN TIME 10.9 SECS (9.5-12.5)
[2019-09-08 16:05] VITALS: BP_SYST 119
--- NOTE | 2019-09-08 16:17 | NUR ---
Discharge Planning: DCP followed up with Suzanne buitrago accepted to [facility] # to report [phone] Rm 208B, transportation arranged with [facility] ([phone]) 7:00pm Ref# [id number]. Patient packet taken to nurse station nurse aware.
[2019-09-08] MEDS: VALPROIC ACID ORAL SYRUP 250 MG/5 ML UDC GT SCH (18:45)
--- NOTE | 2019-09-08 20:30 | NUR ---
PICC LINE CONSENT CALLED PATIENT'S SON PANTERA, UPDATED HIM ON PATIENT NEEDING A MIDLINE/PICC LINE CONSENT, SON REFUSING CONSENT FOR PICC LINE PLACEMENT AT THIS TIME, STATES HE DOESNT WANT ANY INVASIVE TREATMENT. WOULD RATHER HAVE ALL MEDS PO FOR THE GTUBE. WILL PAGE DR. SANZ FOR SON'S REQUEST.
[2019-09-08] MEDS: cefTRIAXone 1 GM IVPB PREMIX 50 ML IV SCH (21:00)
[2019-09-08] MEDS: DONEPEZIL HCL 5 MG TABLET (ARICEPT) GT SCH (21:26)
--- NOTE | 2019-09-08 22:21 | NUR ---
PAGED PAGED DR. ROCK SANZ, SPOKE WITH TSERING
--- NOTE | 2019-09-08 23:15 | NUR ---
MD PAGED DR. Rolo SANZ, CALLED BACK, UPDATED HIM ON SON REQUESTING TO HAVE ALL IV ANTIBIOTICS CHANGED TO PO MEDICATIONS SINCE REFUSING TO HAVE MIDLINE/PICC LINE CONSENT. MD DOESNT WANT TO CHANGE IV ANTIBIOTICS TO PO, NO NEW ORDERS GIVEN, MD ALSO STATED HE DID SPEAK TO THE SON REGARDING PLAN OF CARE FOR PATIENT.
[2019-09-09 00:16] VITALS: BP_SYST 143
[2019-09-09] MEDS: metroNIDAZOLE 250 mg/NS 50 ML IV SCH ×2 (02:00→14:00)
[2019-09-09] MEDS: NACL 0.9% 1,000 ML IV SCH ×2 (05:00→18:20)
[2019-09-09] MEDS: LANSOPRAZOLE 30 MG CAPSULE.DR GT SCH (06:34)
[2019-09-09 08:00] VITALS: BP_SYST 132
[2019-09-09] MEDS: DOCUSATE SODIUM 100 MG/10 ML UDC GT SCH (09:00)
[2019-09-09] MEDS: FLUoxetine HCL 20 MG CAPSULE (PROzac) GT SCH (09:03)
[2019-09-09] MEDS: ASCORBIC ACID 500 MG TABLET GT SCH (09:03)
[2019-09-09] MEDS: MULTIVIT-MINERALS/FERROUS GLUC 15 ML UDC GT SCH (09:03)
[2019-09-09] MEDS: CARBIDOPA/LEVODOPA 25/100 MG TABLET GT SCH ×3 (09:03→21:30)
--- NOTE | 2019-09-09 09:48 | NUR ---
Left a voicemail message to Jam Dior phone no. [phone] to clarify IV placement,endorsed from night worker that they refused, will follow up
--- NOTE | 2019-09-09 11:30 | NUR ---
DC Planning: f/u with son/Jam, he stated " spoke with dr. Mason Marmolejo last night. Dr Marmolejo wanted pt to continue IV ABX and unable to change to PO ABX per his request." He stated he does not know the different giving antibiotic through IV vs GT. I explained the benefits and effectiveness of med administration mode. He verbalized understanding and appreciate the call from dr. Marmolejo as well. Other issue he has, is the corespondent from dr. Varela. He had left several message to the md office but never get a call back. He questioned about the previous treatment when the pt was at [facility]. I advised him to continue calling and I will notify the md to call him as well. After long discussion with Jam, he agreed for the transfer to [facility]. ADRI Bo made aware and to give report to [facility]. >> Per Suzanne, the pt can transfer with IVL and restraints. She will call back to confirm bed assignment. Addendum: 09/09/19 at 1347 by Estrella Basilio RN >> Suzanne confirmed pt bed assignment rm # 208 B , RN to report # [phone], bed available after 7 pm. -- Josefina RUSH made aware.
[2019-09-09 12:45] VITALS: BP_SYST 145
[2019-09-09 16:37] VITALS: BP_SYST 136
[2019-09-09] MEDS: VALPROIC ACID ORAL SYRUP 250 MG/5 ML UDC GT SCH (18:40)
[2019-09-09 18:52] VITALS: BP_SYST 136
--- NOTE | 2019-09-09 19:00 | NUR ---
closing notes report given to heath hernandez loading and unloading supervisor at [facility]. gt feeding lynda well bolus. no sob noted no hypo hyperglycemic reaction noted.
--- NOTE | 2019-09-09 20:49 | NUR ---
TRANSPORT CALLED [facility] ([phone]) NO PICK WAS SET UP . I SET UP AMBULANCE AND THEY SAID THEY WILL CALL BACK 1 TO 3 HOURS. WITH INFO. REF#[id number] FOR PT TO GO TO [facility]
[2019-09-09] MEDS: cefTRIAXone 1 GM IVPB PREMIX 50 ML IV SCH (21:00)
--- NOTE | 2019-09-09 21:00 | NUR ---
Opening notes Pt awake, confused. VSS, afebrile. No s/s distress noted. No IV access, MD aware. Ortiz catheter draining to gravity secured and intact. Hayden wrist restraints on. GT clamped secured with abd binder. No residual noted. Safety maintained. To monitor.
[2019-09-09 21:30] VITALS: BP_SYST 146
[2019-09-09] MEDS: DONEPEZIL HCL 5 MG TABLET (ARICEPT) GT SCH (21:30)
[2019-09-10 00:09] VITALS: BP_SYST 137
--- NOTE | 2019-09-10 01:20 | NUR ---
Discharge [facility] here to corn picker pt. Pt in stable condition. GT clamped. Guerra catheter to gravity intact. No IV access. ID band removed. Pt to go to Rm [address] [place] [facility]. Pt's son aware of transfer. All belongings with pt.
== END 2019-09-10 01:20 | DRG 720 ==
LOC: SED 23:24 → STU 08-30 04:00 → SMU 09-06 13:06
PROVIDERS: ADMIT Internal Medicine; ATTEND Internal Medicine
DX: A41.2 Sepsis due to unspecified staphylococcus (principal); E43 Unspecified severe protein-calorie malnutrition; J18.9 Pneumonia, unspecified organism; I13.0 Hypertensive heart and chronic kidney disease with heart failure and stage 1 through stage 4 chronic kidney disease, or unspecified chronic kidney disease; E11.22 Type 2 diabetes mellitus with diabetic chronic kidney disease; N39.0 Urinary tract infection, site not specified; E11.51 Type 2 diabetes mellitus with diabetic peripheral angiopathy without gangrene; I50.9 Heart failure, unspecified; I48.20 Chronic atrial fibrillation, unspecified; E11.9 Type 2 diabetes mellitus without complications; B96.20 Unspecified Escherichia coli [E. coli] as the cause of diseases classified elsewhere; R65.20 Severe sepsis without septic shock; F03.90 Unspecified dementia, unspecified severity, without behavioral disturbance, psychotic disturbance, mood disturbance, and anxiety; N18.3 Chronic kidney disease, stage 3 (moderate); Z88.0 Allergy status to penicillin; Z88.6 Allergy status to analgesic agent; Z79.899 Other long term (current) drug therapy; Z79.4 Long term (current) use of insulin
CPT/HCPCS: 36415; 71045; 80053; 80202-TC; 81000-TC; 82565-TC; 82962; 83605; 84484; 84520-TC; 85025; 85610-TC; 85730-TC; 86710; 87040-TC; 87081; 87086; 87186-TC; 93005; 96361; 96365; 96367; 99291; 99292; G0378; G9035; J0456; J0696; J1815; J2060; J3370; J3490; J7030; J7050

== ENCOUNTER 2020-03-01 16:26 | Inpatient (IN) | payer MEDICAID, MEDICARE, SELFPAY ==
[~2020-03-01] VITALS: Ht 152.4 cm; Wt 36.7 kg
[2020-03-01 16:26] VITALS: BP_SYST 150
[~2020-03-01 16:26] MED LIST changes: +ACET-2634 GT; -ACET325C6 GT; +ACET325T53 GT; +ASCO500T20 GT; -CRAN1CAP8 GT; +FLEETMO RC; +MOM GT; -NA P133E41 RC
[2020-03-01] MEDS ORDERED: NACL 0.9% 1,000 ML IV ONE (17:00)
[2020-03-01] MEDS ORDERED: ASCO500S10 GT (17:01)
[2020-03-01] MEDS ORDERED: ALBUTEROL IH (17:01)
[2020-03-01] MEDS ORDERED: [UNRECOGNIZED DRUG - OTHER] IV (17:01)
[2020-03-01] MEDS ORDERED: SODIUM CHLORIDE TAB GT (17:01)
[2020-03-01 17:27] LABS: BASOPHILS % (AUTO) 0.5 % (0.0-2.0); EOSINOPHILS % (AUTO) 0.2 % (0.0-4.0); HEMATOCRIT 39.8 % (36-48); HEMOGLOBIN 13.2 g/dL (12.0-16.0); LYMPHOCYTES # (AUTO) 1.2 K/uL (1.0-5.5); LYMPHOCYTES % (AUTO) 31.4 % (20.5-51.5); MEAN CORPUSCULAR HEMOGLOBIN 32 pg (27-31); MEAN CORPUSCULAR HGB CONC 33 % (32-36); MEAN CORPUSCULAR VOLUME 96 fL (79.0-98.0); MONOCYTES # (AUTO) 0.5 K/uL (0.0-1.0); MONOCYTES % (AUTO) 13.8 % (1.7-9.3); NEUTROPHILS % (AUTO) 54.1 % (40.0-70.0); PLATELET COUNT (AUTO) 166 K/uL (130-430); RED BLOOD CELL COUNT(AUTO) 4.17 MIL/uL (4.2-6.2); WHITE BLOOD COUNT (AUTO) 3.7 K/uL (4.8-10.8)
[2020-03-01 17:42] LABS: PROTHROMBIN TIME 9.9 SECS (9.5-12.5)
[2020-03-01 17:52] LABS: ANION GAP 12 (5-15); CALCIUM 9.4 mg/dL (8.4-11.0); CHLORIDE 98 mmol/L (98-107); CREATININE 0.36 mg/dL (0.55-1.30); GLUCOSE 101 mg/dL (70-99); POTASSIUM 4.1 mmol/L (3.5-5.1); SODIUM SERUM 135 mmol/L (136-145); UREA NITROGEN, BLOOD 14 mg/dL (8-21)
[2020-03-01 17:56] LABS: ALANINE AMINOTRANSFERASE 23 U/L (12-78); ALBUMIN 3.1 g/dL (3.4-4.8); ASPARTATE AMINOTRANSFERASE 21 U/L (10-37); TOTAL BILIRUBIN 0.8 mg/dL (0.0-1.0)
[2020-03-01 20:46] VITALS: BP_SYST 161
[2020-03-02 00:02] VITALS: BP_SYST 140
[2020-03-02 08:00] VITALS: BP_SYST 127
[2020-03-02 09:22] LABS: BASOPHILS % (AUTO) 0.4 % (0.0-2.0); EOSINOPHILS % (AUTO) 0.4 % (0.0-4.0); HEMATOCRIT 40.2 % (36-48); HEMOGLOBIN 13.4 g/dL (12.0-16.0); LYMPHOCYTES % (AUTO) 27.3 % (20.5-51.5); MEAN CORPUSCULAR HEMOGLOBIN 32 pg (27-31); MEAN CORPUSCULAR HGB CONC 33 % (32-36); MEAN CORPUSCULAR VOLUME 96 fL (79.0-98.0); MONOCYTES # (AUTO) 0.6 K/uL (0.0-1.0); MONOCYTES % (AUTO) 16.5 % (1.7-9.3); NEUTROPHILS % (AUTO) 55.4 % (40.0-70.0); PLATELET COUNT (AUTO) 163 K/uL (130-430); RED CELL DISTRIBUTION WIDTH 12.9 % (9.0-15.0); WHITE BLOOD COUNT (AUTO) 3.7 K/uL (4.8-10.8)
[2020-03-02 09:38] LABS: INR 1.1 (0.8-1.2); PROTHROMBIN TIME 10.8 SECS (9.5-12.5)
[2020-03-02 09:48] LABS: ALANINE AMINOTRANSFERASE 27 U/L (12-78); ANION GAP 11 (5-15); ASPARTATE AMINOTRANSFERASE 25 U/L (10-37); CALCIUM 9.2 mg/dL (8.4-11.0); CHLORIDE 99 mmol/L (98-107); GLUCOSE 63 mg/dL (70-99); POTASSIUM 3.9 mmol/L (3.5-5.1); SODIUM SERUM 134 mmol/L (136-145); THYROID STIMULATING HORMONE 0.07 uIu/mL (0.36-3.74); TOTAL BILIRUBIN 1.1 mg/dL (0.0-1.0); UREA NITROGEN, BLOOD 17 mg/dL (8-21)
[2020-03-02 10:24] LABS: CHOLESTEROL 174 mg/dL (<200); HDL CHOLESTEROL 74 mg/dL (>55); LDL CHOLESTEROL 87 mg/dL (<100); TRIGLYCERIDES 54 mg/dL (30-150)
[2020-03-02] MEDS: D5/0.45 NS 1,000 ML IV SCH (11:30)
[2020-03-02 12:00] VITALS: BP_SYST 120
[2020-03-02 16:54] VITALS: BP_SYST 120
[2020-03-02] MEDS ORDERED: ACETAMINOPHEN 325 MG TABLET GT PRN (17:15)
[2020-03-02] MEDS ORDERED: MILK OF MAGNESIA 30 ML UDC GT PRN (17:15)
[2020-03-02] MEDS ORDERED: MINERAL OIL 133 ML ENEMA RC PRN (17:15)
[2020-03-02] MEDS ORDERED: BISACODYL 10 MG/SUPPOSITORY RC PRN (17:15)
[2020-03-02] MEDS: VALPROIC ACID ORAL SYRUP 250 MG/5 ML UDC GT SCH (17:53)
[2020-03-02 18:25] LABS: BILIRUBIN,URINE NEGATIVE (NEGATIVE); BLOOD, URINE 3+ (NEGATIVE); CLARITY/URINE SL CLOUDY (CLEAR); COLOR,URINE YELLOW (YELLOW); GLUCOSE,URINE NEGATIVE (NEGATIVE); KETONES,URINE 2+ (NEGATIVE); LEUKOCYTE ESTERASE ,URINE 2+ (NEGATIVE); NITRITE, URINE POSITIVE (NEGATIVE); PH,URINE 5.5 (5.0-8.0); PROTEIN URINE NEGATIVE (NEGATIVE)
[2020-03-02 18:36] LABS: BACTERIA,URINE MANY /HPF (None Seen); CALCIUM OXALATE CRYSTALS,UR 0-10 /HPF (None Seen); MUCUS,URINE None Seen /LPF (None Seen); WBC,URINE 20-50 /HPF (0-3)
[2020-03-02 19:51] VITALS: BP_SYST 122
[2020-03-02] MEDS: DONEPEZIL HCL 5 MG TABLET (ARICEPT) GT SCH (21:00)
[2020-03-02] MEDS: CARBIDOPA/LEVODOPA 25/100 MG TABLET GT SCH (21:00)
[2020-03-03 00:02] VITALS: BP_SYST 144
[2020-03-03] MEDS: D5/0.45 NS 1,000 ML IV SCH ×2 (04:03→21:24)
[2020-03-03] MEDS ORDERED: INSULIN REGULAR, HUMAN 100 UNITS/ML, 10 ML VIAL (humuLIN R) SUBCUT PRN (06:30)
[2020-03-03 08:00] VITALS: BP_SYST 147
[2020-03-03] MEDS ORDERED: LEVOFLOXACIN 500 MG/D5W 100 ML IV ONE ×2 (08:00→09:00)
[2020-03-03] MEDS: CARBIDOPA/LEVODOPA 25/100 MG TABLET GT SCH ×3 (09:00→21:00)
[2020-03-03] MEDS: DOCUSATE SODIUM 100 MG/10 ML UDC GT SCH (09:00)
[2020-03-03] MEDS: FLUoxetine HCL 20 MG CAPSULE (PROzac) GT SCH (09:00)
[2020-03-03 12:08] VITALS: BP_SYST 142
[2020-03-03 16:03] VITALS: BP_SYST 137
[2020-03-03] MEDS: VALPROIC ACID ORAL SYRUP 250 MG/5 ML UDC GT SCH (17:11)
[2020-03-03 19:30] VITALS: BP_SYST 138
[2020-03-03] MEDS: DONEPEZIL HCL 5 MG TABLET (ARICEPT) GT SCH (21:00)
[2020-03-04 01:38] VITALS: BP_SYST 142
[2020-03-04 08:01] LABS: ANION GAP 7 (5-15); CALCIUM 9.3 mg/dL (8.4-11.0); CHLORIDE 99 mmol/L (98-107); GLUCOSE 86 mg/dL (70-99); POTASSIUM 3.4 mmol/L (3.5-5.1); SODIUM SERUM 134 mmol/L (136-145); UREA NITROGEN, BLOOD 8 mg/dL (8-21)
[2020-03-04 08:02] LABS: CREATININE 0.45 mg/dL (0.55-1.30)
[2020-03-04 08:08] LABS: BASOPHILS % (AUTO) 0.6 % (0.0-2.0); EOSINOPHILS # (AUTO) 0.1 K/uL (0.0-0.4); EOSINOPHILS % (AUTO) 2.6 % (0.0-4.0); HEMATOCRIT 37.1 % (36-48); HEMOGLOBIN 12.4 g/dL (12.0-16.0); LYMPHOCYTES # (AUTO) 1.3 K/uL (1.0-5.5); LYMPHOCYTES % (AUTO) 33.8 % (20.5-51.5); MEAN CORPUSCULAR HEMOGLOBIN 32 pg (27-31); MEAN CORPUSCULAR HGB CONC 33 % (32-36); MEAN CORPUSCULAR VOLUME 96 fL (79.0-98.0); MONOCYTES # (AUTO) 0.7 K/uL (0.0-1.0); MONOCYTES % (AUTO) 18.1 % (1.7-9.3); NEUTROPHILS # (AUTO) 1.7 K/uL (1.8-7.7); NEUTROPHILS % (AUTO) 44.9 % (40.0-70.0); PLATELET COUNT (AUTO) 161 K/uL (130-430); RED BLOOD CELL COUNT(AUTO) 3.85 MIL/uL (4.2-6.2); RED CELL DISTRIBUTION WIDTH 12.7 % (9.0-15.0); WHITE BLOOD COUNT (AUTO) 3.8 K/uL (4.8-10.8)
[2020-03-04] MEDS: LEVOFLOXACIN 250 MG/D5W 50 ML IV SCH (09:00)
[2020-03-04] MEDS: CARBIDOPA/LEVODOPA 25/100 MG TABLET GT SCH ×3 (09:00→21:00)
[2020-03-04] MEDS: DOCUSATE SODIUM 100 MG/10 ML UDC GT SCH (09:00)
[2020-03-04] MEDS: FLUoxetine HCL 20 MG CAPSULE (PROzac) GT SCH (09:00)
[2020-03-04 11:26] VITALS: BP_SYST 115
[2020-03-04] MEDS: D5/0.45 NS 1,000 ML IV SCH (13:30)
[2020-03-04 15:25] VITALS: BP_SYST 133
[2020-03-04] MEDS: VALPROIC ACID ORAL SYRUP 250 MG/5 ML UDC GT SCH (18:00)
[2020-03-04] MEDS: DONEPEZIL HCL 5 MG TABLET (ARICEPT) GT SCH (21:00)
[2020-03-05 00:31] VITALS: BP_SYST 155
[2020-03-05] MEDS: D5/0.45 NS 1,000 ML IV SCH ×2 (06:04→22:50)
[2020-03-05 06:23] LABS: BASOPHILS % (AUTO) 0.5 % (0.0-2.0); EOSINOPHILS # (AUTO) 0.1 K/uL (0.0-0.4); EOSINOPHILS % (AUTO) 3.4 % (0.0-4.0); HEMATOCRIT 37.7 % (36-48); HEMOGLOBIN 12.7 g/dL (12.0-16.0); LYMPHOCYTES # (AUTO) 1.2 K/uL (1.0-5.5); LYMPHOCYTES % (AUTO) 35.7 % (20.5-51.5); MEAN CORPUSCULAR HEMOGLOBIN 32 pg (27-31); MEAN CORPUSCULAR HGB CONC 34 % (32-36); MEAN CORPUSCULAR VOLUME 96 fL (79.0-98.0); MONOCYTES # (AUTO) 0.6 K/uL (0.0-1.0); NEUTROPHILS # (AUTO) 1.4 K/uL (1.8-7.7); NEUTROPHILS % (AUTO) 42.4 % (40.0-70.0); PLATELET COUNT (AUTO) 177 K/uL (130-430); RED BLOOD CELL COUNT(AUTO) 3.94 MIL/uL (4.2-6.2); RED CELL DISTRIBUTION WIDTH 12.6 % (9.0-15.0); WHITE BLOOD COUNT (AUTO) 3.4 K/uL (4.8-10.8)
[2020-03-05 07:14] LABS: INR 1.1 (0.8-1.2); PROTHROMBIN TIME 11.2 SECS (9.5-12.5)
[2020-03-05 07:23] LABS: ANION GAP 6 (5-15); CALCIUM 8.9 mg/dL (8.4-11.0); CHLORIDE 96 mmol/L (98-107); CREATININE 0.42 mg/dL (0.55-1.30); GLUCOSE 86 mg/dL (70-99); SODIUM SERUM 130 mmol/L (136-145); UREA NITROGEN, BLOOD 4 mg/dL (8-21)
[2020-03-05 08:26] LABS: POTASSIUM 2.8 mmol/L (3.5-5.1)
[2020-03-05] MEDS ORDERED: POTASSIUM CHLORIDE 80 MEQ in NS 500 ML IV ONE ×2 (08:30→08:53)
[2020-03-05 08:45] VITALS: BP_SYST 146
[2020-03-05] MEDS ORDERED: VANCOMYCIN HCL 1 GM/NS PREMIX 250 ML IV ONE (09:00)
[2020-03-05] MEDS: DOCUSATE SODIUM 100 MG/10 ML UDC GT SCH (09:25)
[2020-03-05] MEDS: FLUoxetine HCL 20 MG CAPSULE (PROzac) GT SCH (09:25)
[2020-03-05] MEDS: CARBIDOPA/LEVODOPA 25/100 MG TABLET GT SCH ×3 (09:25→21:12)
[2020-03-05] MEDS: LEVOFLOXACIN 250 MG/D5W 50 ML IV SCH (09:28)
[2020-03-05 12:40] VITALS: BP_SYST 146
[2020-03-05] MEDS: MIDAZOLAM HCL 5 MG/5 ML VIAL ONE ×5 (12:49→13:04)
[2020-03-05] MEDS: fentaNYL CITRATE/PF 100 MCG/2 ML AMP ONE ×3 (12:51→13:02)
[2020-03-05] MEDS ORDERED: CEFAZOLIN 1 GM IVPB PREMIX 50 ML IV ONE (13:37)
[2020-03-05 14:30] VITALS: BP_SYST 146
[2020-03-05 16:36] VITALS: BP_SYST 142
[2020-03-05] MEDS: VALPROIC ACID ORAL SYRUP 250 MG/5 ML UDC GT SCH (18:00)
[2020-03-05] MEDS: DONEPEZIL HCL 5 MG TABLET (ARICEPT) GT SCH (21:11)
[2020-03-06 00:07] VITALS: BP_SYST 138
[2020-03-06 08:47] VITALS: BP_SYST 138
[2020-03-06] MEDS: FLUoxetine HCL 20 MG CAPSULE (PROzac) GT SCH (09:17)
[2020-03-06] MEDS: CARBIDOPA/LEVODOPA 25/100 MG TABLET GT SCH ×3 (09:17→20:24)
[2020-03-06] MEDS: LEVOFLOXACIN 250 MG/D5W 50 ML IV SCH (09:17)
[2020-03-06] MEDS: DOCUSATE SODIUM 100 MG/10 ML UDC GT SCH (09:17)
[2020-03-06 12:00] VITALS: BP_SYST 159
[2020-03-06] MEDS: D5/0.45 NS 1,000 ML IV SCH (15:30)
[2020-03-06 16:00] VITALS: BP_SYST 121
[2020-03-06] MEDS: VALPROIC ACID ORAL SYRUP 250 MG/5 ML UDC GT SCH (18:01)
[2020-03-06 19:45] VITALS: BP_SYST 125
[2020-03-06 20:00] VITALS: BP_SYST 125
[2020-03-06] MEDS ORDERED: cefTRIAXone 1 GM in D5W 50 ML IV SCH (20:00)
[2020-03-06] MEDS: DONEPEZIL HCL 5 MG TABLET (ARICEPT) GT SCH (20:24)
== END 2020-03-06 21:10 | DRG 252 ==
LOC: SED 16:26 → SMU 17:20
PROVIDERS: ADMIT Internal Medicine; ATTEND Internal Medicine
PROC: 0DH63UZ Insertion of Feeding Device into Stomach, Percutaneous Approach (ICD-10-PCS; principal; 2020-03-05 15:15)
DX: K94.23 Gastrostomy malfunction (principal); N39.0 Urinary tract infection, site not specified; F23 Brief psychotic disorder; E11.9 Type 2 diabetes mellitus without complications; Y83.3 Surgical operation with formation of external stoma as the cause of abnormal reaction of the patient, or of later complication, without mention of misadventure at the time of the procedure; G20 Parkinson's disease; R13.12 Dysphagia, oropharyngeal phase; E46 Unspecified protein-calorie malnutrition; F31.9 Bipolar disorder, unspecified; F02.80 Dementia in other diseases classified elsewhere, unspecified severity, without behavioral disturbance, psychotic disturbance, mood disturbance, and anxiety; I10 Essential (primary) hypertension; Z88.6 Allergy status to analgesic agent; Z88.0 Allergy status to penicillin; Z79.899 Other long term (current) drug therapy; Z68.1 Body mass index [BMI] 19.9 or less, adult; Z03.818 Encounter for observation for suspected exposure to other biological agents ruled out; Y92.128 Other place in nursing home as the place of occurrence of the external cause
CPT/HCPCS: 36415; 43246; 80048; 80053; 80061; 81000-TC; 82962; 84443-TC; 85025; 85610-TC; 85730-TC; 87081; 87086; 87186-TC; 96360; 99285; J0690; J0696; J1815; J1956; J2250; J3010; J3370; J3480; J7040; J7050; J7060; U0003-CS